=== PATIENT | female | born 1965 | race Caucasian/White ===

== ENCOUNTER 2017-02-11 05:45 | Emergency (ER) | payer SELFPAY ==
[2017-02-11 06:35] LABS: #Basophils 0.1 thou/uL (0.0-0.2); #Lymphocytes 4.5 thou/uL (1.20-3.40); #Monocytes 1.2 thou/uL (0.11-0.59); #Neutrophils 6.7 thou/uL (1.40-6.50); %Eosinophils 0.3 % (0.0-10.0); %Lymphocytes 35.6 % (21.0-51.0); %Monocytes 9.8 % (0.0-10.0); Hematocrit 40.6 % (36.0-47.0); Red Blood Cell (RBC) Count 4.39 mill/uL (4.20-5.40); White Blood Cell (WBC) Count 12.6 thou/uL (4.8-10.8)
[2017-02-11 06:56] LABS: ALT (SGPT) 13 U/L (8-55); AST (SGOT) 16 U/L (5-34); Alkaline Phosphatase 199 U/L (40-150); Anion Gap 13 mmol/L (10-20); BUN (Urea Nitrogen) 13 mg/dL (9.8-20.1); Bilirubin, Total 0.6 mg/dL (0.2-1.2); Calc. Creatinine Clearance 0 mL/min (70-130); Carbon Dioxide 22 mmol/L (22-29); Chloride 108 mmol/L (98-107); Estimated GFR-MDRD 74; Globulin 3.2 g/dL (2.4-3.5); Protein, Total 6.8 g/dL (6.0-8.3)
[2017-02-11 07:46] LABS: Bilirubin Negative (Negative); Blood, Urine Moderate (Negative); Glucose, Urine (Dipstick) Negative (Negative); Ketone, Urine Negative (Negative); Nitrite Negative (Negative); Protein, Urine (Dipstick) 100 mg/dL (Neg-Trace)
[2017-02-11 07:52] LABS: Bacteria/HPF 3+ HPF (None Seen); Hyaline Casts/LPF 0-3 HYALINE CAST LPF (0-3 Hyaline); RBC/HPF 21-50 HPF (0-3); Squamous Epithelial 0-3 HPF (0-3)
[2017-02-11] MEDS ORDERED: cefTRIAXone\\ROCEPHIN 1 GM VIAL IM SCH (08:30)
[2017-02-11] MEDS ORDERED: Lidocaine 1% PF 5 ML VIAL ONE (09:26)
== END 2017-02-11 10:01 | disposition home or self-care (01) ==
LOC: ERS 05:45
DX: N39.0 Urinary tract infection, site not specified (principal); G43.909 Migraine, unspecified, not intractable, without status migrainosus; F17.210 Nicotine dependence, cigarettes, uncomplicated; Z79.899 Other long term (current) drug therapy
CPT/HCPCS: 36415; 80053; 81003; 81015; 85025; 87077; 87086; 87186; 96372; 99406; J0696; J2001

== ENCOUNTER 2017-05-03 10:19 | Emergency (ER) | payer SELFPAY ==
--- NOTE | 2017-05-03 11:13 | RAD ---
RIGHT FOOT 3 VIEWS: Date: 05/03/17 HISTORY: Injury, fall, right foot pain. FINDINGS/IMPRESSION: No acute fracture or dislocation is seen. Posterior and plantar calcaneal spurs are present. POS: [facility]
== END 2017-05-03 11:45 | disposition home or self-care (01) ==
LOC: ERS 10:19
DX: S93.401A Sprain of unspecified ligament of right ankle, initial encounter (principal); G43.909 Migraine, unspecified, not intractable, without status migrainosus; I10 Essential (primary) hypertension; N90.810 Female genital mutilation status, unspecified; F17.210 Nicotine dependence, cigarettes, uncomplicated; W10.9XXA Fall (on) (from) unspecified stairs and steps, initial encounter

== ENCOUNTER 2019-01-04 10:44 | Outpatient (CLI) | payer OTHER ==
--- NOTE | 2019-01-04 11:33 | RAD ---
Cervical spine 4 views: 12/27/2018 COMPARISON: None HISTORY: Neck pain, history of leukemia FINDINGS: There is minimal anterolisthesis at C2-3 and C3-4, measuring in the 3 mm range at each leve l. C5-6 level demonstrates mild anterior osteophyte formation. Within the mid cervical spine there is bilateral facet and uncovertebral osteophyte formation, left g reater than right, most prominent at C3-4, C4-5, and C5-6. Open-mouth odontoid view demonstrates a normal appearance. There is questionable soft tissue nodularity in the supraclavicular region bilaterally on frontal dariana ging, which could signify lymphadenopathy. Recommend correlation with clinical/physical examination. CT would be the study of choice for further assessment. IMPRESSION: Degenerative change as detailed above. Question soft tissue nodularity in the supraclavic ular regions which may reflect lymphadenopathy. CODE T
== END 2019-01-04 10:45 | disposition home or self-care (01) ==
LOC: BICRAD 10:44
PROVIDERS: ATTEND Internal Medicine
DX: M54.2 Cervicalgia (principal); M47.812 Spondylosis without myelopathy or radiculopathy, cervical region; Z72.0 Tobacco use
CPT/HCPCS: 72040

== ENCOUNTER 2019-05-05 12:50 | Inpatient (IN) | payer OTHER, SELFPAY ==
[2019-05-05 13:27] LABS: Hemoglobin 11.8 g/dL (12.0-16.0); Mean Corpuscular HGB CONC 28.3 g/dL (32.0-36.0); Mean Corpuscular Hemoglobin 26.8 pg (27.0-31.0); Mean Corpuscular Volume 94.9 fL (78.0-98.0); Mean Platelet Volume 8.3 fL (7.4-10.4); Platelet Count 173 thou/uL (130-400); RBC Distribution Width 13.2 % (11.5-14.5); Red Blood Cell (RBC) Count 4.42 mill/uL (4.20-5.40)
[2019-05-05 13:33] LABS: Bilirubin Negative (Negative); Blood, Urine Trace (Negative); Clarity Clear (Clear); Glucose, Urine (Dipstick) Normal (Negative); Leukocyte Negative Leu/uL (Negative); Nitrite Negative (Negative); Protein, Urine (Dipstick) 10 mg/dL (Neg-Trace); RBC/HPF 0-3 HPF (0-3); Squamous Epithelial 0-3 HPF (0-3); Urobilinogen Normal mg/dL (Less than 2); WBC/HPF None Seen HPF (0-3)
[2019-05-05 13:42] LABS: Bacteria/HPF None Seen HPF (None Seen)
[2019-05-05 13:44] LABS: Lymphocytes 91 % (21-51); MDiff Complete? YES; Monocytes 2 % (0-10); Neutrophil 6 % (42-75); Platelet Morphology Comment Appears Adequate; Reactive Lymphocytes 1 % (0-10); Tear Drops SLIGHT = 2-5 cells (100X) (0-1/hpf)
[2019-05-05 13:45] LABS: ALT (SGPT) 8 U/L (8-55); AST (SGOT) 26 U/L (5-34); Albumin 4.5 g/dL (3.5-5.0); Alkaline Phosphatase 198 U/L (40-110); Anion Gap 13 mmol/L (10-20); BUN (Urea Nitrogen) 17 mg/dL (9.8-20.1); Bilirubin, Total 0.4 mg/dL (0.2-1.2); Calc. Creatinine Clearance 0 mL/min (70-130); Calcium 9.5 mg/dL (7.8-10.44); Carbon Dioxide 24 mmol/L (22-29); Chloride 107 mmol/L (98-107); Estimated GFR-MDRD 47; Globulin 3.3 g/dL (2.4-3.5); Glucose 81 mg/dL (70-105); Protein, Total 7.8 g/dL (6.0-8.3); Sodium 137 mmol/L (136-145)
[2019-05-05 13:50] LABS: Potassium 6.8 mmol/L (3.5-5.1)
[2019-05-05] MEDS ORDERED: Morphine 4 MG/ML VIAL ONE ×2 (14:14→16:49)
[2019-05-05 14:25] LABS: CKMB 1.1 ng/mL (0-6.6)
--- NOTE | 2019-05-05 14:59 | RAD ---
PORTABLE CHEST: Date: 05/05/2019 HISTORY: Left-sided chest pain. FINDINGS: Heart size within normal limits. Mediastinal structures appear unremarkable. Lungs are clear of any i nfiltrates. No signs of failure. IMPRESSION: No active intrathoracic disease. POS: [facility]
--- NOTE | 2019-05-05 15:11 | CT ---
CT ABDOMEN AND PELVIS PERFORMED WITH CONTRAST ENHANCEMENT: HISTORY: Left-sided abdomen pain. The patient also has a history of CLL. COMPARISON: None. FINDINGS: Lung bases are clear of any infiltrative process. There is evidence for air trapping. The liver shows no focal abnormalities. There is marked splenomegaly, the spleen measuring 22 cm in length. Pancreas and gallbladder regions are unremarkable. Right and left adrenal glands and right and left kidneys are normal in size. There is some mild dila tation to both collecting systems with a 5-6 mm calcification which appears to be within the proximal right ureter. There is extensive confluent periaortic adenopathy which begins at the level of the s uperior mesenteric artery and extends to the bifurcation. This measures as much as 4.8 x 7.9 cm in s ize. This confluent lymphadenopathy extends as soft tissue changes in the presacral region extending all the way to the level of the coccyx with extensive iliac chain and obturator chain adenopathy. T here are perirectal soft tissue changes. There is a fat plane between these soft tissue changes in t he rectum itself. The appendix is normal. Review of osseous structured showed no lytic or blastic bony change. IMPRESSION: 1. Extensive abdominal adenopathy. This includes gastrohepatic and peripancreatic and periportal ly mphadenopathy with more extensive adenopathy surrounding the aorta and IVC with confluent soft tissue changes extending along the anterior border of the sacrum and coccyx and soft tissue changes surroun ding the rectosigmoid colon region, also extensive iliac and obturator chain adenopathy. This in con junction with splenomegaly is compatible with a history of chronic lymphocytic leukemia. I have no p revious exams for comparison. 2. Bilateral hydronephrosis. On the right side, this appears to be caused by calcification which is felt to be within the right ureter. It measures 5-6 mm in size located at approximately the L5 leve l. POS: [facility]
--- NOTE | 2019-05-05 16:27 | PDOC.FPRHP ---
- History of Present Illness Chief Complaint: Abdominal pain History of Present Illness: 53 yo F w/ PMH of CLL monitored By Dr Olivares, HTN, HLD, anxietyand tobacco abuse who presents for acute onset LUQ abdominal pain. Pt reports she has had some intermittent pain over last week but acutely worsenied today and she presented to the ED. She reports some left shoulder pain that has been present for weeks. Denies fever chiils, NVDC, no sob, no pluerisy. Denies CP. In ED pt noted to have elevated troponin at .4 and trai as well as hyperkalemia. She was agressively fluid resuscitated and given th lovenox and d50 plus insulin for potassium 6.8. ED Course: See Above - Allergies/Adverse Reactions Allergies Allergy/AdvReac Type Severity Reaction Status Date / Time No Known Allergies Allergy Verified 05/05/19 20:13 - Home Medications Medication Instructions Recorded Confirmed Type Amlodipine [Norvasc] 5 mg PO HS 05/05/19 05/05/19 History Atorvastatin Calcium 20 mg PO HS 05/05/19 05/05/19 History Celecoxib [Celebrex] 200 mg PO HS 05/05/19 05/05/19 History FLUoxetine HCl 20 mg PO DAILY 05/05/19 05/05/19 History - History PMHx:CLL see hpi PSHx: Right wrist, tubal ligation FHx:Denies Social: 1ppd smoker 30+ pack years, denies alcohol and drug use - Review of Systems General: denies: fever/chills, night sweats, fatigue ENT: denies: nasal congestion Respiratory: denies: cough, congestion, shortness of breath Cardiovascular: denies: chest pain, edema Gastrointestinal: reports: abdominal pain. denies: nausea, vomiting, GI bleeding Genitourinary: denies: dysuria Skin: denies: rashes Musculoskeletal: reports: pain Neurological: reports: syncope Psychological: reports: anxiety - Vital signs BP: 156/77 HR: 84 RR: 20 Tmax: 98.5 Pox: 100% on ra Wt: 69Kg - Physical Exam Constitutional: awake, alert and oriented, other (In acute pain) HEENT: normocephalic and atraumatic, PERRLA, grossly normal vision, grossly normal hearing Neck: supple -Neck: diffuse adenopathy Chest: no-tender to palpation Heart: RRR, normal S1/S2, no murmurs/rubs/gallops, no edema Lungs: no respiratory distress, good air movement -Lungs: scattered rhonchi Abdomen: soft -Abdomen: splene paplable below costal margin, moderately ttp LUQ Neurological: no focal deficit, normal sensation Skin: no rash/lesions, capillary refill <2 seconds, no jaundice Heme/Lymphatic: no unusual bruising or bleeding -Heme/Lymphatic: Diffuse adenopathy Psychiatric: normal mood and affect FMR H&P: Results - Labs Result Diagrams: 05/06/19 04:11 05/06/19 14:19 Lab results: WBC 290.0 thou/uL (4.8-10.8) H* 05/05/19 13:11 Hgb 11.8 g/dL (12.0-16.0) L 05/05/19 13:11 Hct 41.9 % (36.0-47.0) 05/05/19 13:11 MCV 94.9 fL (78.0-98.0) 05/05/19 13:11 Plt Count 173 thou/uL (130-400) 05/05/19 13:11 Sodium 137 mmol/L (136-145) 05/05/19 13:11 Potassium 6.8 mmol/L (3.5-5.1) H* 05/05/19 13:11 Chloride 107 mmol/L (98-107) 05/05/19 13:11 Carbon Dioxide 24 mmol/L (22-29) 05/05/19 13:11 BUN 17 mg/dL (9.8-20.1) 05/05/19 13:11 Creatinine 1.20 mg/dL (0.6-1.1) H 05/05/19 13:11 Glucose 81 mg/dL (70-105) 05/05/19 13:11 Calcium 9.5 mg/dL (7.8-10.44) 05/05/19 13:11 Total Bilirubin 0.4 mg/dL (0.2-1.2) 05/05/19 13:11 AST 26 U/L (5-34) 05/05/19 13:11 ALT 8 U/L (8-55) 05/05/19 13:11 Alkaline Phosphatase 198 U/L (40-110) H 05/05/19 13:11 CK-MB (CK-2) 1.1 ng/mL (0-6.6) 05/05/19 13:11 Serum Total Protein 7.8 g/dL (6.0-8.3) 05/05/19 13:11 Albumin 4.5 g/dL (3.5-5.0) 05/05/19 13:11 Urine Ketones Negative mg/dL (Negative) 05/05/19 13:07 Urine Blood Trace (Negative) A 05/05/19 13:07 Urine Nitrite Negative (Negative) 05/05/19 13:07 Ur Leukocyte Esterase Negative Jigar/uL (Negative) 05/05/19 13:07 Urine RBC 0-3 HPF (0-3) 05/05/19 13:07 Urine WBC None Seen HPF (0-3) 05/05/19 13:07 Ur Squamous Epith Cells 0-3 HPF (0-3) 05/05/19 13:07 Urine Bacteria None Seen HPF (None Seen) 05/05/19 13:07 - EKG Interpretation EKG: NSR no st or t wave changes, rate WNL - Radiology Interpretation CT scan - abdomen Status: report reviewed by me (Diffuse adenopathy, no splenic infarct, 22cm splene) FMR H&P: A/P - Problem List (1) CLL (chronic lymphocytic leukemia) Current Visit: Yes Status: Chronic Code(s): C91.10 - CHRONIC LYMPHOCYTIC LEUK OF B-CELL TYPE NOT ACHIEVE REMIS (2) Abdominal pain Current Visit: Yes Status: Acute Code(s): R10.9 - UNSPECIFIED ABDOMINAL PAIN (3) Splenomegaly Current Visit: Yes Status: Acute Code(s): R16.1 - SPLENOMEGALY, NOT ELSEWHERE CLASSIFIED (4) NSTEMI (non-ST elevated myocardial infarction) Current Visit: Yes Status: Acute Code(s): I21.4 - NON-ST ELEVATION (NSTEMI) MYOCARDIAL INFARCTION (5) Hyperkalemia Current Visit: Yes Status: Acute Code(s): E87.5 - HYPERKALEMIA (6) HTN (hypertension) Current Visit: Yes Status: Chronic Code(s): I10 - ESSENTIAL (PRIMARY) HYPERTENSION (7) Anxiety Current Visit: Yes Status: Acute Code(s): F41.9 - ANXIETY DISORDER, UNSPECIFIED (8) Normocytic anemia Current Visit: Yes Status: Chronic Code(s): D64.9 - ANEMIA, UNSPECIFIED (9) TARI (acute kidney injury) Current Visit: Yes Status: Acute Code(s): N17.9 - ACUTE KIDNEY FAILURE, UNSPECIFIED - Plan 53 yo F w/ CLL and marked splenomegaly presents for LUQ abdominal pain 1) CLL with abd pain - likely related to enlarged spleen - norco prn for pain - trend daily cbc - no abx at this time - TLS labs neg - Dr Olivares consulted in ED - allopurinl 200mg bid and trend TLS labs 2) Abd pain: see above 3) Type 2 NSTEMI: - no cp - th lovenix -trend - COnsider am cards consult 4) HTN) - cont home meds 5) HLD: - cont home meds 6) TARI: - IVF hydration, trend 7) Hyperkalemia - s/p d50 and insulin, repeat pending - kayexalayte and repeat am CMP Dispo: Guarded, monitor on telemetry and trend labs. Onc consulted, appreciate recs. Code: Full FMR H&P: Upper Level - Plan Date/Time: 05/05/19 1626 I, [], have evaluated this patient and agree with findings/plan as outlined by business intern resident. Pertinent changes/additions are listed here. Addendum - Attending - Attending Attestation Date/Time: 05/05/19 3039 I personally evaluated the patient and discussed the management with Dr. Carter I agree with the History, Examination, Assessment and Plan documented above with any addition or exceptions noted below. 53 yo female with hx of CLL presents for abdominal pain. CT scan reviewed. Patient noted to have bilateral hydro with right-sided nephrolithasis. Does not appear to be infected. Will continue IVFs and UOP. Baeza if not responding appropriately. Strain urine. Repeat US in AM to monitor hydro. Also noted to have significant adenopathy and spleenomegaley. Labs reviewed and patient with TARI and hyperkalemia in association with elevated troponin > 0.3. Possibly related to TARI, however meets criteria for NSTEMI, type II. Will place on tele. Start therapuetic anticoagulation. ECHO in AM. Trend trop and EKGs. Patient remains asymptomatic. Start kayex for hyperK. Cards and Onc consulted. Arianne
[2019-05-05 16:41] LABS: Troponin I 0.224 ng/mL (< 0.028)
[2019-05-05] MEDS ORDERED: Insulin Regular 300 UNITS/3 ML VIAL ONE ×2 (17:25→17:58)
[2019-05-05] MEDS ORDERED: Ondansetron ODT 4 MG TAB PO PRN (17:29)
[2019-05-05] MEDS ORDERED: Ondansetron PF 4 MG/2 ML Vial IVP PRN (17:29)
[2019-05-05] MEDS ORDERED: HYDROcodone/Acetaminophen 5/325 mg Tablet PO PRN (17:29)
[2019-05-05] MEDS ORDERED: Albuterol Sulfate 2.5 mg/3 ml Neb NEB PRN (17:34)
[2019-05-05] MEDS ORDERED: Enoxaparin Sodium 80 MG/0.8 ML SYRINGE ONE ×2 (17:54→17:58)
[2019-05-05] MEDS ORDERED: Dextrose 50% Abboject 50 ML SYRINGE ONE (17:58)
[2019-05-05 19:50] LABS: Troponin I Less than 0.010 ng/mL (< 0.028)
[2019-05-05 19:54] LABS: Anion Gap 13 mmol/L (10-20); BUN (Urea Nitrogen) 15 mg/dL (9.8-20.1); Calc. Creatinine Clearance 0 mL/min (70-130); Calcium 9.1 mg/dL (7.8-10.44); Carbon Dioxide 24 mmol/L (22-29); Chloride 107 mmol/L (98-107); Estimated GFR-MDRD 50; Sodium 140 mmol/L (136-145)
[2019-05-05 19:59] LABS: Glucose 57 mg/dL (70-105)
[2019-05-05 20:09] VITALS: BMI 22.5
[2019-05-05] MEDS: Allopurinol 100 MG TAB PO SCH (20:39)
[2019-05-05] MEDS: Famotidine 20 MG TAB PO SCH (20:42)
[2019-05-05] MEDS: HYDROcodone/Acetaminophen 5/325 mg Tablet PO PRN (20:44)
[2019-05-05] MEDS: Lactated Ringer's 1,000 ML IV SCH (20:47)
[2019-05-05] MEDS ORDERED: Amlodipine 5 MG TAB PO SCH (23:00)
[2019-05-06] MEDS: Lactated Ringer's 1,000 ML IV SCH ×3 (03:46→20:32)
[2019-05-06 05:02] LABS: Phosphorus 3.8 mg/dL (2.3-4.7)
[2019-05-06 05:08] LABS: ALT (SGPT) 7 U/L (8-55); AST (SGOT) 22 U/L (5-34); Albumin 3.9 g/dL (3.5-5.0); Alkaline Phosphatase 174 U/L (40-110); Anion Gap 14 mmol/L (10-20); BUN (Urea Nitrogen) 14 mg/dL (9.8-20.1); Bilirubin, Total 0.5 mg/dL (0.2-1.2); Calc. Creatinine Clearance 68 mL/min (70-130); Calcium 8.8 mg/dL (7.8-10.44); Carbon Dioxide 23 mmol/L (22-29); Chloride 107 mmol/L (98-107); Estimated GFR-MDRD 56; Globulin 3.1 g/dL (2.4-3.5); Glucose 85 mg/dL (70-105); Potassium 5.6 mmol/L (3.5-5.1); Sodium 138 mmol/L (136-145); Uric Acid 4.7 mg/dL (2.6-6.0)
[2019-05-06 05:27] LABS: Hemoglobin 11.6 g/dL (12.0-16.0); Lymphocytes 96 % (21-51); MDiff Complete? YES; Mean Corpuscular HGB CONC 30.5 g/dL (32.0-36.0); Mean Corpuscular Hemoglobin 29.1 pg (27.0-31.0); Mean Corpuscular Volume 95.6 fL (78.0-98.0); Mean Platelet Volume 8.4 fL (7.4-10.4); Monocytes 1 % (0-10); Neutrophil 1 % (42-75); Platelet Count 138 thou/uL (130-400); Platelet Morphology Comment Appears Adequate; RBC Distribution Width 13.2 % (11.5-14.5); Reactive Lymphocytes 2 % (0-10); Red Blood Cell (RBC) Count 3.96 mill/uL (4.20-5.40)
--- NOTE | 2019-05-06 06:07 | PDOC.FM ---
- Subjective Subjective: Patient doing well this morning. She reports that her LUQ pain has improved greatly since yesterday. Denies any complaints this morning. Discussed that we will be consulting cardiology today, patient agreeable with plan of care. - Objective Vital Signs & Weight: Vital Signs (12 hours) Temp Pulse Resp BP BP BP Pulse Ox 05/06/19 03:50 98.0 F 84 16 137/72 97 05/06/19 00:03 77 151/69 H 05/06/19 00:00 77 14 151/69 H 98 05/05/19 19:55 98.5 F 84 20 156/77 H 100 Weight Weight 69.173 kg I&O: 05/04/19 05/05/19 05/06/19 06:59 06:59 06:59 Intake Total 1916 Output Total 200 Balance 1716 Result Diagrams: 05/06/19 04:11 05/06/19 04:11 EKG Reviewed by me: Yes (sinus 70s) Phys Exam - Physical Examination Constitutional: NAD HEENT: moist MMs, sclera anicteric Neck: supple, full ROM Respiratory: no wheezing, clear to auscultation bilateral Cardiovascular: RRR, no significant murmur Gastrointestinal: positive bowel sounds slightly ttp LUQ Musculoskeletal: no edema, pulses present Neurological: non-focal, moves all 4 limbs Psychiatric: normal affect, A&O x 3 Skin: no rash, normal turgor Dx/Plan (1) TARI (acute kidney injury) Code(s): N17.9 - ACUTE KIDNEY FAILURE, UNSPECIFIED Status: Acute (2) Abdominal pain Code(s): R10.9 - UNSPECIFIED ABDOMINAL PAIN Status: Acute (3) CLL (chronic lymphocytic leukemia) Code(s): C91.10 - CHRONIC LYMPHOCYTIC LEUK OF B-CELL TYPE NOT ACHIEVE REMIS Status: Chronic (4) HTN (hypertension) Code(s): I10 - ESSENTIAL (PRIMARY) HYPERTENSION Status: Chronic (5) Hyperkalemia Code(s): E87.5 - HYPERKALEMIA Status: Acute (6) NSTEMI (non-ST elevated myocardial infarction) Code(s): I21.4 - NON-ST ELEVATION (NSTEMI) MYOCARDIAL INFARCTION Status: Acute (7) Normocytic anemia Code(s): D64.9 - ANEMIA, UNSPECIFIED Status: Chronic - Plan Plan: Patient is a 53F with PMHx of CLL (Dr Olivares), HTN, HLD, anxiety, and tobacco abuse admitted for: #CLL with LUQ abd pain - splenomegaly, likely related - Abd CT: abdominal adenopathy, splenomegaly, bilateral hydronephrosis -hgb and platelets stable at this time with splenomegaly - continue norco prn for pain - continue to trend daily cbc - no abx at this time - TLS labs neg - Dr Olivares consulted in ED, appreciate recs - allopurinol 200mg bid and trend TLS labs #Type 2 NSTEMI: - no cp - th lovenix started in ED, continue - trops: 0.465>0.224> <0.01 - cards consult today, appreciate recs #HTN - cont home meds #HLD: - cont home meds #TARI: -creatinine improved slightly to 1.02 from 1.13, GFR improved slightly; neither at baseline -Abd CT: bilateral hydronephrosis; R ureter calcification noted - IVF hydration, trend #Hyperkalemia - s/p d50 and insulin - 6.8>4.0>5.4 - albuterol q2h scheduled and kayexalate DVTppx: th lovenox Diet: HH Dispo: Onc consulted, appreciate recs. Cards consult today for NSTEMI, appreciate recs. Continue pain control Code: Full Addendum - Attending - Attending Attestation Date/Time: 05/06/19 2955 I personally evaluated the patient and discussed the management with Dr. Church I agree with the History, Examination, Assessment and Plan documented above with any addition or exceptions noted below. Patient currently pain free. Hyperkalemia hold COX2 inhibitor etiology not confirmed tumor lysis syndrome not yet substantiated. Patient to have Cardiology evaluation for NSTEMI. Patient Oncologist on case and appreciate recommendation. Will continue trend RFT and Potassium and treat consult accordingly.
[2019-05-06] MEDS ORDERED: Albuterol Sulfate 2.5 mg/3 ml Neb NEB SCH (08:00)
[2019-05-06] MEDS: Albuterol Sulfate 2.5 mg/3 ml Neb NEB SCH ×5 (08:15→15:29)
[2019-05-06] MEDS: Enoxaparin Sodium 80 MG/0.8 ML SYRINGE SC SCH ×2 (08:28→20:31)
[2019-05-06] MEDS: Allopurinol 100 MG TAB PO SCH ×2 (08:28→20:30)
[2019-05-06] MEDS: FLUoxetine HCl 20 MG CAP PO SCH (08:28)
[2019-05-06] MEDS: Famotidine 20 MG TAB PO SCH ×2 (08:28→20:31)
[2019-05-06] MEDS ORDERED: Furosemide 20 MG/2 ML VIAL SLOW IVP SCH (10:15)
[2019-05-06] MEDS ORDERED: Sodium Bicarb 50 MEQ/50 ML Abboject 8.4% SYRINGE IVP SCH (10:15)
[2019-05-06 14:48] LABS: Anion Gap 14 mmol/L (10-20); BUN (Urea Nitrogen) 13 mg/dL (9.8-20.1); Calc. Creatinine Clearance 67 mL/min (70-130); Calcium 9.3 mg/dL (7.8-10.44); Carbon Dioxide 29 mmol/L (22-29); Chloride 102 mmol/L (98-107); Estimated GFR-MDRD 55; Glucose 101 mg/dL (70-105); Sodium 141 mmol/L (136-145)
[2019-05-06] MEDS: HYDROcodone/Acetaminophen 5/325 mg Tablet PO PRN ×2 (15:51→20:28)
--- NOTE | 2019-05-06 17:13 | CON ---
DATE OF CONSULTATION: 05/06/2019 REASON FOR CONSULTATION: Positive troponin. HISTORY OF PRESENT ILLNESS: Ms. Maldonado is a pleasant 53-year-old white female, who comes to the hospital for abdominal pain. She was diagnosed with CLL about a year ago. She has been followed by Dr. Olivares. She had elected to not start any type of therapy for it. She came in as she has been having intermittent abdominal pain over the last week, worse on the left upper quadrant, some shoulder pain as well. Denies shortness of breath, nausea, or vomiting. No chest pain. During her admission, troponins were checked, and her initial value was actually elevated at 0.4 and has been downtrending ever since to the point where it was undetectable now at 0.4, 0.2, and then 0.01. On my evaluation, she denies any chest pain. She only admits to her abdominal pain. PAST MEDICAL HISTORY: 1. CLL. 2. Hypertension. 3. Hyperlipidemia. 4. Anxiety. SURGICAL HISTORY: 1. Right wrist surgery. 2. Tubal ligation. OUTPATIENT MEDICATIONS: 1. Amlodipine 5 mg q.h.s. 2. Atorvastatin 20 mg q.h.s. 3. Celebrex 200 mg q.h.s. 4. a day. ALLERGIES: NO KNOWN DRUG ALLERGIES. FAMILY HISTORY: No early coronary artery disease. SOCIAL HISTORY: A pack a day for the last 30 years. She states she is now just smoking about 8 cigarettes a day. No alcohol or drugs. REVIEW OF SYSTEMS: A 12-point review of systems was done and was all negative unless stated in the history of present illness. PHYSICAL EXAMINATION: VITAL SIGNS: Temperature 98.4, pulse 73, respiratory rate 16, saturating 99% on room air, and blood pressure 150/75. GENERAL: Awake, alert, and oriented x3, in no distress. HEENT: Normocephalic and atraumatic. NECK: Supple. LUNGS: Clear. CARDIOVASCULAR: S1 and S2. No S3 or S4. No murmurs. ABDOMEN: Soft, positive bowel sounds. EXTREMITIES: Trace edema. SKIN: Warm and dry. LABORATORY DATA: Laboratory work was reviewed. White count is impressive at on admission with 95% lymphocytes, hemoglobin 11.8, hematocrit 41, and platelet count of 173. Chemistry was unremarkable except for creatinine of 1.13, which is now better at 1.04. Potassium was 5.6 down to 4.0, glucose was 67, better now. Alkaline phosphatase was 174 and LDH was 256. Albumin of 3.9, and troponin went from 0.46, then to 0.22, and then undetectable less than 0.01. Albumin of 4.5. UA was unremarkable. CT of the abdomen and pelvis showed enlarged spleen measuring 22 cm. Extensive abdominal adenopathy and bilateral hydronephrosis. Chest x-ray shows no acute intrathoracic disease. ASSESSMENT AND PLAN: 1. Elevated troponin, likely type 2 demand type of ischemia. 2. Chronic lymphocytic leukemia. 3. Abdominal pain. 4. Splenomegaly. 5. Abdominal adenopathy. PLAN: 1. No indication for anticoagulation at this time. 2. The source of her pain is likely her splenomegaly and lymphadenopathy from her CLL. 3. We will get an echocardiogram to evaluate LV function and valvular structures. If this is okay, no further cardiac workup would be warranted at this time. 4. Thank you for letting us participate in the care of your patient. We will follow. Job ID: [id number]
--- NOTE | 2019-05-06 17:33 | CON ---
DATE OF CONSULTATION: REASON FOR CONSULTATION: CLL. HISTORY OF PRESENT ILLNESS: Ms. Maldonado is a pleasant 53-year-old female who was diagnosed with stage I CLL in 05/2018. She has been followed over the past year by Dr. Olivares. Her white count at presentation was 47,000. Over the past several months, she has rapidly progressed. When she was seen last on 04/12, her white count was 236,000. The plan was to begin chemotherapy once financial approval was obtained. Yesterday, she began to have left-sided abdominal pain. She presented to the emergency room for evaluation. She underwent a CT scan of her abdomen and pelvis, which showed marked splenomegaly, measuring 22 cm in length. She had extensive abdominal adenopathy, consistent with her CLL. She also complained of left shoulder pain, but no chest pain. Her troponin was mildly elevated at 0.4. She had hyperkalemia. She was admitted for further treatment. Aggressively hydrated and given D50 plus insulin. Her potassium has improved overnight and is currently normal. She is awaiting cardiac workup for her mildly elevated troponin. We were asked to see her regarding her CLL. The patient has had drenching night sweats for several months generally every night and has felt well until just recently. PAST MEDICAL HISTORY: 1. CLL. 2. Hypertension. 3. Hyperlipidemia. 4. Arthritis. 5. Hepatitis C. 6. Hemorrhoids. 7. History of substance abuse. 8. Tobacco use. PAST SURGICAL HISTORY: 1. Right hand surgery. 2. D and C for miscarriage. 3. Endometriosis. 4. Tubal ligation. 5. Hysterectomy. ALLERGIES: NO KNOWN DRUG ALLERGIES. HOME MEDICATIONS: 1. Amlodipine 10 mg. 2. Atorvastatin 20 mg. 3. Celebrex. 4. Prozac. FAMILY HISTORY: No family history of cancer or blood disorder. SOCIAL HISTORY: She is single, has 3 children. Lives with her daughter, son-in-law, 2 grandchildren, and a friend. A [id number] history of smoking, former illicit drug use. REVIEW OF SYSTEMS: A 10-point review of systems is negative except for noted in HPI. PHYSICAL EXAMINATION: VITAL SIGNS: Temperature 98.4, pulse is 73, respiratory rate 18, BP is 150/75, and she is 99% on room air. GENERAL: This is a well-developed, well-nourished female, in no acute distress. HEENT: Normocephalic and atraumatic. Pupils are equal and reactive to light. NECK: Supple. She does have palpable left and right posterior cervical lymph nodes. She has bilateral occipital lymphadenopathy, right posterior auricular and right posterior ischial soft nodules. CV: Regular rate and rhythm. LUNGS: Clear. ABDOMEN: Soft and nontender. She has a palpable spleen. EXTREMITIES: No clubbing or cyanosis. SKIN: No rash. LYMPHATICS: She has palpable bilateral axillary and inguinal lymphadenopathy. HEMATOLOGIC: No petechiae or purpura. NEUROLOGIC: Nonfocal. PERTINENT LABORATORY DATA AND X-RAYS: Current WBCs are 234,000, hemoglobin is 11.6, hematocrit 37.9, and platelet count is 138,000. She has 1 neutrophil and 96% lymphocytes. Sodium is 141, potassium 4.0, chloride 102, CO2 is 29, BUN is 13, creatinine 1.04, uric acid 4.7, calcium 8.8, phosphorus 3.8, bilirubin 0.5, AST 22, ALT 7, and alkaline phosphatase is 174. LDH is 253. Serum total protein is 7, albumin 3.9, and globulin 3.1. Radiology per HPI. ASSESSMENT: Chronic lymphocytic leukemia with extensive lymphadenopathy and splenomegaly. DISCUSSION: The patient has been started on allopurinol in anticipation of chemotherapy. She will have her first dose of Rituxan as an inpatient within the next day or so and will be monitored closely for tumor lysis syndrome. She will then follow up in the clinic to begin chemotherapy with venetoclax and Gazyva. The patient will need to be transferred to the oncology floor once her cardiac workup is completed. This was discussed at length with the patient who wishes to proceed. Case has also been discussed and reviewed with Dr. Olivares. Thank you for the consult. We will follow her hospital course closely. Job ID: [id number]
[2019-05-06] MEDS: Atorvastatin Calcium 20 MG TAB PO SCH (20:31)
[2019-05-06] MEDS: Amlodipine 5 MG TAB PO SCH (20:31)
[2019-05-07] MEDS: HYDROcodone/Acetaminophen 5/325 mg Tablet PO PRN ×2 (04:14→08:36)
[2019-05-07] MEDS: Lactated Ringer's 1,000 ML IV SCH ×3 (04:18→19:53)
[2019-05-07 04:57] LABS: ALT (SGPT) Less than 7 U/L (8-55); AST (SGOT) 20 U/L (5-34); Albumin 3.8 g/dL (3.5-5.0); Alkaline Phosphatase 150 U/L (40-110); Anion Gap 12 mmol/L (10-20); BUN (Urea Nitrogen) 14 mg/dL (9.8-20.1); Bilirubin, Total 0.4 mg/dL (0.2-1.2); Calc. Creatinine Clearance 71 mL/min (70-130); Calcium 8.8 mg/dL (7.8-10.44); Carbon Dioxide 30 mmol/L (22-29); Chloride 102 mmol/L (98-107); Estimated GFR-MDRD 59; Globulin 2.7 g/dL (2.4-3.5); Glucose 83 mg/dL (70-105); Potassium 3.4 mmol/L (3.5-5.1); Protein, Total 6.5 g/dL (6.0-8.3); Sodium 141 mmol/L (136-145)
[2019-05-07 05:40] LABS: Hemoglobin 12.1 g/dL (12.0-16.0); Mean Corpuscular Hemoglobin 32.3 pg (27.0-31.0); Mean Corpuscular Volume 94.9 fL (78.0-98.0); Mean Platelet Volume 8.1 fL (7.4-10.4); Platelet Count 121 thou/uL (130-400); Red Blood Cell (RBC) Count 3.74 mill/uL (4.20-5.40)
[2019-05-07 05:44] LABS: Lymphocytes 94 % (21-51); MDiff Complete? YES; Monocytes 2 % (0-10); Neutrophil 4 % (42-75)
--- NOTE | 2019-05-07 06:09 | PDOC.FM ---
- Subjective Subjective: Patient doing well this morning. Reports of a headache, but her abdominal pain has improved. - Objective Vital Signs & Weight: Vital Signs (12 hours) Temp Pulse Resp BP BP BP Pulse Ox 05/07/19 04:12 98.3 F 69 16 154/76 H 96 05/06/19 20:48 98.6 F 80 16 144/82 H 97 05/06/19 20:31 80 144/82 H Weight Admit Weight 69.173 kg Weight 67.676 kg I&O: 05/05/19 05/06/19 05/07/19 06:59 06:59 06:59 Intake Total 1916 2250 Output Total 200 Balance 1716 2250 Result Diagrams: 05/07/19 04:03 05/07/19 04:03 EKG Reviewed by me: Yes (sinus 60s-70s) Phys Exam - Physical Examination Constitutional: NAD HEENT: moist MMs, sclera anicteric Neck: supple, full ROM Respiratory: no wheezing, clear to auscultation bilateral Cardiovascular: RRR, no significant murmur Gastrointestinal: soft ttp RUQ, splenic tip palpated Musculoskeletal: no edema, pulses present Neurological: non-focal, moves all 4 limbs lymphadenopathy throughout Psychiatric: normal affect, A&O x 3 Skin: no rash, normal turgor Dx/Plan (1) TARI (acute kidney injury) Code(s): N17.9 - ACUTE KIDNEY FAILURE, UNSPECIFIED Status: Acute (2) Abdominal pain Code(s): R10.9 - UNSPECIFIED ABDOMINAL PAIN Status: Acute (3) CLL (chronic lymphocytic leukemia) Code(s): C91.10 - CHRONIC LYMPHOCYTIC LEUK OF B-CELL TYPE NOT ACHIEVE REMIS Status: Chronic (4) HTN (hypertension) Code(s): I10 - ESSENTIAL (PRIMARY) HYPERTENSION Status: Chronic (5) Hyperkalemia Code(s): E87.5 - HYPERKALEMIA Status: Acute (6) NSTEMI (non-ST elevated myocardial infarction) Code(s): I21.4 - NON-ST ELEVATION (NSTEMI) MYOCARDIAL INFARCTION Status: Acute (7) Normocytic anemia Code(s): D64.9 - ANEMIA, UNSPECIFIED Status: Chronic - Plan Plan: Patient is a 53F with PMHx of CLL (Dr Olivares), HTN, HLD, anxiety, and tobacco abuse admitted for: #CLL with LUQ abd pain - splenomegaly, likely related - Abd CT: abdominal adenopathy, splenomegaly, bilateral hydronephrosis - continue norco prn for pain - continue to trend daily cbc - no abx at this time - TLS labs neg - Dr Olivares consulted in ED, appreciate recs -patient will get first dose of rituxan in hospital after cardiac workup complete, with monitoring for tumor lysis syndrome; she will then be able to continue the rest of her treatments outpatient - allopurinol 200mg bid and trend TLS labs #Type 2 NSTEMI: - no cp - th lovenix started in ED, cards rec no indication for anticoagulation at this time, will transition to daily lovenox - trops: 0.465>0.224> <0.01 - cards consult, rec echo to assess for left ventricular and valvular function, pending #HTN - cont home meds #HLD: - cont home meds #TARI: -creatinine 1.13>1.02>0.98, GFR improved -Abd CT: bilateral hydronephrosis; R ureter calcification noted - IVF hydration, trend #Hyperkalemia, resolved - 6.8>4.0>5.4 >3.4 DVTppx: lovenox Diet: Dispo: Onc consulted, appreciate recs. Cards consult, plan for echo today with likely move to oncology floor later today to begin treatment for CLL with active monitoring for tumor lysis syndrome. Continue pain control Code: Full Addendum - Attending - Attending Attestation Date/Time: 05/07/19 8131 I personally evaluated the patient and discussed the management with Dr. Church I agree with the History, Examination, Assessment and Plan documented above with any addition or exceptions noted below. Appreciate specialist recommendations echocardiogram completed results pending plan transfer to Oncology floor if stable to start treatment. Potassium corrected patient still with anorexia. No significant abdominal pain last BM several days ago she will benefits from regular BM will rx laxative prn.
[2019-05-07] MEDS ORDERED: Acetaminophen 650 MG/20.3 ML UDCUP PO PRN (08:16)
[2019-05-07] MEDS: FLUoxetine HCl 20 MG CAP PO SCH (08:24)
[2019-05-07] MEDS: Famotidine 20 MG TAB PO SCH ×2 (08:24→19:53)
[2019-05-07] MEDS: Allopurinol 100 MG TAB PO SCH ×2 (08:24→19:54)
[2019-05-07] MEDS: Enoxaparin Sodium 40 MG/0.4 ML SYRINGE SC SCH (08:26)
[2019-05-07] MEDS ORDERED: Senokot S 8.6-50 MG TAB PO SCH (11:20)
[2019-05-07] MEDS: Polyethylene Glycol 3350 17 GM Packet PO SCH (12:47)
[2019-05-07] MEDS ORDERED: Polyethylene Glycol 3350 17 GM Packet PO SCH (13:00)
--- NOTE | 2019-05-07 14:26 | PDOC.MOPN ---
Interval History: denies any pain. - Vital Signs Vital Signs: Vital Signs (12 hours) Temp Pulse Resp BP Pulse Ox 05/07/19 12:51 98.5 F 78 20 159/80 H 98 05/07/19 08:17 98.2 F 79 16 154/78 H 96 05/07/19 04:12 98.3 F 69 16 154/76 H 96 Weight Admit Weight 152 lb 8 oz Weight 149 lb 3.2 oz - Physical Exam General: Alert, Oriented x3, No acute distress HEENT: Atraumatic, PERRLA, EOMI, Mucous membr. moist/pink Lungs: Clear to auscultation, Normal air movement Abdomen: Other (splenomegaly) Extremities: No clubbing, No cyanosis, No edema, Normal pulses, No tenderness/ swelling Skin: No rashes, No breakdown, No significant lesion Neurological: Normal gait, Normal speech, Strength at 5/5 X4 ext, Normal tone, Sensation intact, Cranial nerves 3-12 NL, Reflexes 2+ Psych/Mental Status: Mental status NL, Mood NL - Labs Result Diagrams: 05/07/19 04:03 05/07/19 04:03 Lab results: Laboratory Results - last 24 hr 05/07/19 04:03: Sodium 141, Potassium 3.4 L, Chloride 102, Carbon Dioxide 30 H, Anion Gap 12, BUN 14, Creatinine 0.98, Estimated GFR (MDRD) 59, Glucose 83, Calcium 8.8, Total Bilirubin 0.4, AST 20, ALT Less than 7 L, Alkaline Phosphatase 150 H, Serum Total Protein 6.5, Albumin 3.8, Globulin 2.7, Albumin/ Globulin Ratio 1.4 05/07/19 04:03: WBC 193.0 H*, RBC 3.74 L, Hgb 12.1, Hct 35.5 L, MCV 94.9, MCH 32.3 H, MCHC 34.0, RDW 13.0, Plt Count 121 L, MPV 8.1, Neutrophils % (Manual) 4 L, Lymphocytes % (Manual) 94 H, Monocytes % (Manual) 2, Neutrophils # Not Reportable, Lymphocytes # Not Reportable 05/06/19 14:19: Sodium 141, Potassium 4.0, Chloride 102, Carbon Dioxide 29, Anion Gap 14, BUN 13, Creatinine 1.04, Estimated GFR (MDRD) 55, Glucose 101, Calcium 9.3 Status: lab reviewed by me A/P - Problem (1) CLL (chronic lymphocytic leukemia) Current Visit: Yes Code(s): C91.10 - CHRONIC LYMPHOCYTIC LEUK OF B-CELL TYPE NOT ACHIEVE REMIS Status: Chronic - Plan Plan: 1. Rituxan not available here until Friday or Friday. 2. If cleared by Cardiology and Residents she can go home and return to our clinic on Friday 3. Continue Allopurinol 200mg BID
--- NOTE | 2019-05-07 15:30 | PDOC.CPN ---
- Subjective Date: 05/07/19 Time: 15:28 Interval history: No new issues. No chest pain. - Review of Systems General: denies: fever/chills, weight/appetite/sleep changes, night sweats, fatigue Respiratory: denies: cough, congestion, shortness of breath, exercise intolerance Cardiovascular: denies: chest pain, palpitation, edema, paroxysmal nocturnal dyspnea, orthopnea Gastrointestinal: reports: abd pain Musculoskeletal: denies: tenderness, stiffness, swelling, arthritis/arthralgias Neurological: denies: numbness, syncope, seizure, weakness - Objective Allergies/Adverse Reactions: Allergies Allergy/AdvReac Type Severity Reaction Status Date / Time No Known Allergies Allergy Verified 05/05/19 20:13 Visit Medications: Current Medications Acetaminophen (Tylenol Elixir) 650 mg PO Q4H PRN PRN Reason: Headache, Aches or Pain Hydrocodone Bitart/Acetaminophen (Davis 5/325) 1 tab PO Q4H PRN PRN Reason: Moderate Pain (4-6) Hydrocodone Bitart/Acetaminophen (Davis 5/325) 2 tab PO Q4H PRN PRN Reason: Severe Pain (7-10) Last Admin: 05/07/19 08:36 Dose: 2 tab Albuterol/Ipratropium (Duoneb) 3 ml NEB Q4H PRN PRN Reason: SOB &/or Wheezing Allopurinol (Zyloprim) 200 mg PO BID [facility] Last Admin: 05/07/19 08:24 Dose: 200 mg Amlodipine Besylate (Norvasc) 5 mg PO HS [facility] Last Admin: 05/06/19 20:31 Dose: 5 mg Atorvastatin Calcium (Lipitor) 20 mg PO HS [facility] Last Admin: 05/06/19 20:31 Dose: 20 mg Enoxaparin Sodium (Lovenox) 40 mg SC 0900 [facility] Last Admin: 05/07/19 08:26 Dose: 40 mg Famotidine (Pepcid) 20 mg PO BID [facility] Last Admin: 05/07/19 08:24 Dose: 20 mg Fluoxetine HCl (Prozac) 20 mg PO DAILY [facility] Last Admin: 05/07/19 08:24 Dose: 20 mg Lactated Ringer's (Lactated Ringer's) 1,000 mls @ 125 mls/hr IV .Q8H [facility] Last Admin: 05/07/19 12:51 Dose: 1,000 mls Ondansetron HCl (Zofran Odt) 4 mg PO Q6H PRN PRN Reason: Nausea/Vomiting Ondansetron HCl (Zofran) 4 mg IVP Q6H PRN PRN Reason: Nausea/Vomiting Polyethylene Glycol (Miralax) 17 gm PO DAILY [facility] Last Admin: 05/07/19 12:47 Dose: Not Given Senna/Docusate Sodium (Senokot S) 1 tab PO BID [facility] Sodium Polystyrene Sulfonate (Kayexalate Oral Susp 15 Gm/60 Ml) 15 gm PO DAILY [facility] Last Admin: 05/07/19 08:23 Dose: Not Given Vital Signs & Weight: Vital Signs Temp Pulse Resp BP Pulse Ox 05/07/19 12:51 98.5 F 78 20 159/80 H 98 05/07/19 08:17 98.2 F 79 16 154/78 H 96 05/07/19 04:12 98.3 F 69 16 154/76 H 96 Admit Weight 152 lb 8 oz Weight 149 lb 3.2 oz - Physical Exam General: alert & oriented x3 HEENT: mucus membranes moist Neck: supple neck Cardiac: regular rate and rhythm Lungs: clear to auscultation Neuro: grossly intact Abdomen: tender Extremities: 1+ LE edema Skin: clear Musculoskeletal: normal range of motion - Labs Result Diagrams: 05/07/19 04:03 05/07/19 04:03 Troponin/CKMB CK-MB (CK-2) 1.1 ng/mL (0-6.6) 05/05/19 13:11 Troponin I Less than 0.010 ng/mL (< 0.028) 05/05/19 19:24 - Telemetry Sinus rhythms and dysrhythmias: sinus rhythm - Assessment/Plan Assessment/Plan: 1. CLL 2. Abdominal pain likely from CLL 3. Splenomegaly 4. Ascitis mild on echo. PLAN: - CV stable. - Will sign off. Please call with any questions.
[2019-05-07] MEDS: Senokot S 8.6-50 MG TAB PO SCH (19:54)
[2019-05-07] MEDS: Amlodipine 5 MG TAB PO SCH (19:54)
[2019-05-07] MEDS: Atorvastatin Calcium 20 MG TAB PO SCH (19:54)
[2019-05-08 04:58] LABS: Anion Gap 11 mmol/L (10-20); BUN (Urea Nitrogen) 12 mg/dL (9.8-20.1); Calc. Creatinine Clearance 67 mL/min (70-130); Calcium 9.1 mg/dL (7.8-10.44); Carbon Dioxide 30 mmol/L (22-29); Chloride 104 mmol/L (98-107); Estimated GFR-MDRD 56; Glucose 114 mg/dL (70-105); Potassium 4.3 mmol/L (3.5-5.1); Sodium 141 mmol/L (136-145)
[2019-05-08] MEDS: Lactated Ringer's 1,000 ML IV SCH (04:59)
--- NOTE | 2019-05-08 05:49 | PDOC.FM ---
- Subjective Subjective: Doing well this morning, has no new complaints. - Objective MAR Reviewed: Yes Vital Signs & Weight: Vital Signs (12 hours) Temp Pulse Resp BP BP Pulse Ox 05/08/19 04:00 98.4 F 72 18 128/68 96 05/07/19 20:33 80 145/77 H 05/07/19 19:54 79 180/80 H 05/07/19 19:43 98.9 F 79 18 180/80 H 96 Weight Admit Weight 69.173 kg Weight 67.041 kg I&O: 05/06/19 05/07/19 05/08/19 06:59 06:59 06:59 Intake Total 19150 1979 Output Total 200 Balance 17150 1979 Result Diagrams: 05/07/19 04:03 05/08/19 04:03 Phys Exam - Physical Examination Constitutional: NAD HEENT: moist MMs Neck: supple, full ROM Respiratory: no wheezing, no rales, no rhonchi, clear to auscultation bilateral Cardiovascular: RRR, no significant murmur, no rub Gastrointestinal: soft, non-tender Musculoskeletal: pulses present Neurological: moves all 4 limbs Psychiatric: normal affect, A&O x 3 Skin: no rash, normal turgor Dx/Plan (1) TARI (acute kidney injury) Code(s): N17.9 - ACUTE KIDNEY FAILURE, UNSPECIFIED Status: Acute (2) Abdominal pain Code(s): R10.9 - UNSPECIFIED ABDOMINAL PAIN Status: Acute (3) Hyperkalemia Code(s): E87.5 - HYPERKALEMIA Status: Acute (4) Splenomegaly Code(s): R16.1 - SPLENOMEGALY, NOT ELSEWHERE CLASSIFIED Status: Acute (5) CLL (chronic lymphocytic leukemia) Code(s): C91.10 - CHRONIC LYMPHOCYTIC LEUK OF B-CELL TYPE NOT ACHIEVE REMIS Status: Chronic (6) HTN (hypertension) Code(s): I10 - ESSENTIAL (PRIMARY) HYPERTENSION Status: Chronic - Plan Plan: CLL with LUQ abd pain - splenomegaly, likely related - Abd CT: abdominal adenopathy, splenomegaly, bilateral hydronephrosis - continue norco prn for pain - Dr Olivares consulted in ED, appreciate recs. Rituxan not available inpatient. Patient can f/u outpatient with oncology Friday. - allopurinol 200mg bid and trend TLS labs Type 2 NSTEMI, resolved. - trops: 0.465>0.224> <0.01 - cards consult, appreciate recommendations - ECHO WNL HTN - cont home meds HLD: - cont home meds TARI: -creatinine 1.13>1.02>0.98, GFR improved -Abd CT: bilateral hydronephrosis; R ureter calcification noted - IVF hydration, trend Hyperkalemia, resolved - 6.8>4.0>5.4 >3.4>4.3 DVTppx: lovenox Diet: HH Dispo: Stable Code: Full Addendum - Attending - Attending Attestation Date/Time: 05/08/19 3073 I personally evaluated the patient and discussed the management with Dr. Saavedra I agree with the History, Examination, Assessment and Plan documented above with any addition or exceptions noted below. Patient stable for dismissal f/u oncology start CML treatment and repeat potassium admonished to stop smoking and endorsed her efforts in cutting back.
[2019-05-08] MEDS: Allopurinol 100 MG TAB PO SCH (09:35)
[2019-05-08] MEDS: Senokot S 8.6-50 MG TAB PO SCH (09:35)
[2019-05-08] MEDS: FLUoxetine HCl 20 MG CAP PO SCH (09:36)
[2019-05-08] MEDS: Polyethylene Glycol 3350 17 GM Packet PO SCH (09:36)
[2019-05-08] MEDS: Enoxaparin Sodium 40 MG/0.4 ML SYRINGE SC SCH (09:36)
[2019-05-08] MEDS: Famotidine 20 MG TAB PO SCH (09:36)
[2019-05-08 11:37] VITALS: BP 137/78; TEMP 98.7
--- NOTE | 2019-05-10 11:37 | DIS ---
DATE OF ADMISSION: 05/05/2019 DATE OF DISCHARGE: 05/08/2019 RESIDENT: Jovita Salas MD ADMITTING ATTENDING: Galileo Gomez MD DISCHARGE ATTENDING: Salbador Luther MD CONSULTS: 1. Dr. Kapadia, Cardiology. 2. Candi Perez, TINO, Oncology. PROCEDURES: Echocardiogram, ejection fraction 55% to 60%. Normal diastolic function. Abdomen and pelvis CT, extensive abdominal lymphadenopathy surrounding the aorta and IVC, splenomegaly, bilateral hydronephrosis. PRIMARY DIAGNOSIS: Chronic lymphocytic leukemia with abdominal pain. SECONDARY DIAGNOSES: 1. Type 2 non-ST elevation myocardial infarction. 2. Hypertension. 3. Hyperlipidemia. 4. Acute kidney injury. 5. Hyperkalemia. DISCHARGE MEDICATIONS: 1. Amlodipine. 2. Atorvastatin. 3. Celebrex. 4. Fluoxetine. 5. Allopurinol. 6. Zofran. 7. MiraLAX. DISCONTINUED MEDICATIONS: None. HISTORY OF PRESENT ILLNESS AND HOSPITAL COURSE: Jeane is a 53-year-old female with history of chronic lymphocytic leukemia followed by Dr. Olivares, hypertension, hyperlipidemia, anxiety, tobacco abuse, who presented for left upper quadrant abdominal pain. She reports that she has had intermittent pain over the last week but it acutely worsened. She was noted to have an elevated troponin of 0.4 and TARI as well as hyperkalemia. She was fluid resuscitated and then given Lovenox. Initial labs notable for white blood cell count of 290, potassium downtrended from 6.8 to 4.3 on the day of discharge. Oncology was consulted and recommended starting allopurinol for possible tumor lysis syndrome in the setting of chemotherapy. She is scheduled to start chemotherapy on the Friday following discharge. Once the patient's pain was under control, she felt ready for discharge. DISPOSITION: Guarded. DISCHARGE INSTRUCTIONS: 1. Location: Home. 2. Diet: Regular. 3. Activity: Ad anup. 4. Followup: Follow up with Oncology on Friday and primary care physician within 1 week. Job ID: [id number]
== END 2019-05-08 11:45 | disposition home or self-care (01) | DRG 840 ==
LOC: ERS 12:50 → ERHOLD 15:54 → 2NO 19:17
PROVIDERS: ADMIT Family Medicine; ATTEND Family Medicine
DX: C91.10 Chronic lymphocytic leukemia of B-cell type not having achieved remission (principal); I21.A1 Myocardial infarction type 2; N17.9 Acute kidney failure, unspecified; N13.2 Hydronephrosis with renal and ureteral calculous obstruction; R18.8 Other ascites; E78.5 Hyperlipidemia, unspecified; I10 Essential (primary) hypertension; E87.5 Hyperkalemia; F41.9 Anxiety disorder, unspecified; F17.210 Nicotine dependence, cigarettes, uncomplicated; Z90.710 Acquired absence of both cervix and uterus; Z79.899 Other long term (current) drug therapy
CPT/HCPCS: 36415; 36416; 71045; 74177; 80048; 80053; 81003; 81015; 82553; 83615; 84100; 84484; 84550; 85025; 93005; 93306; 94640; 96361; 96374; 96375; 96376; J1650; J1815; J1940; J2270; J7611

== ENCOUNTER 2019-05-26 13:29 | Inpatient (IN) | payer OTHER ==
[2019-05-26] MEDS ORDERED: Morphine 4 MG/ML VIAL ONE (14:24)
[2019-05-26] MEDS ORDERED: Ondansetron PF 4 MG/2 ML Vial ONE (14:24)
[2019-05-26 14:46] LABS: Hemoglobin 11.7 g/dL (12.0-16.0); Mean Corpuscular HGB CONC 30.4 g/dL (32.0-36.0); Mean Corpuscular Hemoglobin 28.7 pg (27.0-31.0); Mean Corpuscular Volume 94.4 fL (78.0-98.0); Mean Platelet Volume 7.4 fL (7.4-10.4); Platelet Count 136 thou/uL (130-400); RBC Distribution Width 13.3 % (11.5-14.5); Red Blood Cell (RBC) Count 4.07 mill/uL (4.20-5.40)
[2019-05-26 14:51] LABS: Bilirubin Negative (Negative); Blood, Urine Negative (Negative); Clarity Clear (Clear); Glucose, Urine (Dipstick) Normal (Negative); Leukocyte Negative Leu/uL (Negative); Nitrite Negative (Negative); Protein, Urine (Dipstick) Negative (Neg-Trace); Urobilinogen Normal mg/dL (Less than 2)
[2019-05-26] MEDS ORDERED: Iopamidol 370 76% 100 ML VIAL ONE (14:55)
[2019-05-26 15:02] LABS: ALT (SGPT) Less than 7 U/L (8-55); AST (SGOT) 25 U/L (5-34); Albumin 4.4 g/dL (3.5-5.0); Alkaline Phosphatase 189 U/L (40-110); Anion Gap 12 mmol/L (10-20); BUN (Urea Nitrogen) 16 mg/dL (9.8-20.1); Bilirubin, Total 0.5 mg/dL (0.2-1.2); Calc. Creatinine Clearance 0 mL/min (70-130); Calcium 9.5 mg/dL (7.8-10.44); Carbon Dioxide 28 mmol/L (22-29); Chloride 105 mmol/L (98-107); Estimated GFR-MDRD 47; Globulin 2.9 g/dL (2.4-3.5); Glucose 103 mg/dL (70-105); Lipase 46 U/L (8-78); Potassium 5.9 mmol/L (3.5-5.1); Protein, Total 7.3 g/dL (6.0-8.3); Sodium 139 mmol/L (136-145)
[2019-05-26 15:15] LABS: Anisocytosis SLIGHT = 6-15 cells (100X) (0-5/hpf); Hypochromia SLIGHT = 6-15 cells (100X) (0-5/hpf); Lymphocytes 91 % (21-51); MDiff Complete? YES; Monocytes 2 % (0-10); Neutrophil 2 % (42-75); Platelet Morphology Comment Appears Adequate; Polychromasia SLIGHT = 2-3 cells (100X) (0-2/hpf); Reactive Lymphocytes 5 % (0-10)
--- NOTE | 2019-05-26 15:50 | CT ---
EXAM: CT ABDOMEN AND PELVIS HISTORY: Abdominal pain. Patient was diagnosed with CLL one year ago. Patient has not undergone treat ment. COMPARISON: 05/05/2019 Procedure: Multiple contiguous axial images were obtained and a CT of the abdomen and pelvis with IV contrast. C oronal reformats were performed. FINDINGS: Lower Chest: Minimal dependent atelectatic changes in the lung bases Vessels: Normal caliber aorta. No periaortic fat stranding Heart: Normal heart size. No significant pericardial fluid Abdomen: Portal vein:Patent Gallbladder: No calcified gallstones. Normal caliber wall. Liver: No enhancing masses. Right hepatic lobe measures 21.6 cm. Pancreas: within normal limits. Spleen: Homogeneous enhancement. Craniocaudal dimension of the spleen is 23.6 cm. Adrenals: within normal limits. Kidneys: There is bilateral [id number] hydronephrosis and hydroureter. There is enhancement of both ureters suggesting an ascending urinary tract infection. No evidence of nonobstructing calculus. Enhancement of the renal collecting systems is similar to the previous examination. Peritoneum: No ascites or free air, no fluid collection. Bowel: Limited evaluation due to the lack of oral contrast administration. No evidence of bowel obstr uction. Ileocecal junction is unremarkable. Normal caliber appendix. Scattered fecal material in a nondistended, nondilated colon. Mesentery and Retroperitoneum: Markedly enlarged gastrohepatic, retrocrural and periportal lymphadeno walker. [employer] periportal lymphadenopathy measures 4.3 x 3.8 cm. Enlarged gastrohepatic lymph nodes measure 2.4 x 1.7 cm. There is bulky retroperitoneal lymphadenopathy with markedly periao rtic and aortocaval lymphadenopathy. Lymphadenopathy measures 7.4 x 5.5 cm. There is mass effect upon both renal arteries without complete obscuration. There is mass effect and partial obscuration o f the inferior vena cava. There is evidence of bulky lymphadenopathy extending into the presacral space and is noted to be along the expected course of both ureters. Abdominal Wall: No acute abnormalities Additional findings: There is evidence of splenic varices and to lesser extent gastroesophageal varic es. Pelvis: Reproductive Organs: Surgically absent uterus. Pelvis: Bulky bilateral external iliac lymph nodes. [employer] left external iliac lymphadenopath y measures 4.9 x 3.0 cm, previously measuring 4.9 x 3.0 cm. Additional enlarged bilateral inguinal lymph nodes are noted. [employer] enlarged left inguinal lymph node measures 2.1 x 1.0 cm Bladder: within normal limits. Bones: No lytic or blastic lesions within the osseous structures IMPRESSION: 1. Moderate bilateral hydronephrosis predominantly due to bulky lymphadenopathy causing mass effect u otf both distal ureters. Previously suggested obstructing calculus along the course of right ureter appears to be extra ureteral in location. Enhancement of both ureters is likely due to a ascending ur inary tract infection. . 2. Extensive bulky lymphadenopathy involving the gastrohepatic ligament, periportal region, retroperi toneum and the left/right hemipelvis including the presacral space as described above. 3. Lymphadenopathy causes mass effect upon the inferior vena cava and renal artery. 4. Hepatosplenomegaly. Transcribed Date/Time: 05/26/2019 4:18 PM
[2019-05-26 19:16] VITALS: BMI 22.6
[2019-05-26] MEDS ORDERED: Ondansetron ODT 4 MG TAB SL PRN (19:16)
[2019-05-26] MEDS ORDERED: Ondansetron PF 4 MG/2 ML Vial IVP PRN ×2 (19:16→19:50)
[2019-05-26] MEDS ORDERED: Acetaminophen 325 MG TAB PO PRN (19:16)
[2019-05-26] MEDS ORDERED: HYDROcodone/Acetaminophen 5/325 mg Tablet PO PRN ×2 (19:16)
--- NOTE | 2019-05-26 19:46 | PDOC.FPRHP ---
- History of Present Illness Chief Complaint: abdominal pain History of Present Illness: Patient is a 53F with PMHx of CLL (not yet treated), HTN, migraines presenting to the ED for abdominal pain. Patient had a recent admission for similar pain. It was deduced that her pain was likely due to splenomegaly and abdominal distension from her lymphadenopathy from the CLL. Patient has not yet started her chemotherapy due to financial issues, though she has an appointment to start on 05/31. Patient reports that for the last several days she has had persistent dull- sharp abdominal pain, largely in the LUQ and throughout the right side of her abdomen. She reports that it worsens with acute movements or bending over. She denies any n/v/d, hematochezia/melena/hematemesis, dysuria, increased or decreased urinary frequency, hematuria. Per the ED physician urology was called, and due to the mass effect on both distal ureters, recommended likely stents. Oncology, Dr. Olivares, was called, and he did not encourage any changes to the plan of care from her upcoming appointment on 05/31. ED Course: 4mg morphine, 4mg zofran - Allergies/Adverse Reactions Allergies Allergy/AdvReac Type Severity Reaction Status Date / Time No Known Allergies Allergy Verified 05/05/19 20:13 - Home Medications Medication Instructions Recorded Confirmed Type Amlodipine [Norvasc] 5 mg PO HS 05/05/19 05/26/19 History Atorvastatin Calcium 20 mg PO HS 05/05/19 05/26/19 History Celecoxib [Celebrex] 200 mg PO HS 05/05/19 05/26/19 History FLUoxetine HCl 20 mg PO DAILY 05/05/19 05/26/19 History Allopurinol [Zyloprim] 200 mg PO BID 30 Days #60 tablet 05/08/19 05/26/19 Rx Acetaminophen W/ Codeine [Tylenol 1 tab PO Q6HR PRN 05/26/19 05/26/19 History #3] - History PMHx: CLL (untreated), HTN, migraines PSHx: R hand sx, hysterectomy FHx: non-contributory Social: 1/2ppd smoker, occasional etoh use, no drug use - Review of Systems General: denies: fever/chills Eyes: denies: eye pain, vision changes ENT: denies: nasal congestion, rhinorrhea Respiratory: denies: cough, shortness of breath Cardiovascular: denies: chest pain, edema Gastrointestinal: reports: abdominal pain. denies: nausea, vomiting, diarrhea, constipation Skin: denies: rashes, lesions Musculoskeletal: denies: pain, tenderness Neurological: denies: syncope, seizure Psychological: denies: anxiety, depression - Vital signs BP: [145/85] HR: [77] RR: [16] Tmax: [98.5] Pox: [95]% on [RA] Wt: [69kg] - Physical Exam Constitutional: NAD, awake, alert and oriented, well developed HEENT: normocephalic and atraumatic, MMM Neck: supple, FROM, other (LAD posterior cervical and anterior cervical) Chest: no-tender to palpation, no lesions Heart: RRR, normal S1/S2 Lungs: CTAB, no respiratory distress Abdomen: other (abdominal distention, ttp RUQ and slightly throughout) Musculoskeletal: normal structure, normal tone, ROM grossly normal Neurological: no focal deficit, normal sensation Skin: no rash/lesions, good turgor Heme/Lymphatic: no unusual bruising or bleeding, no purpura Psychiatric: normal mood and affect, good judgment and insight FMR H&P: Results - Labs Result Diagrams: 05/27/19 04:53 05/26/19 22:39 Lab results: WBC 243.0 thou/uL (4.8-10.8) H* 05/26/19 14:28 Hgb 11.7 g/dL (12.0-16.0) L 05/26/19 14:28 Hct 38.4 % (36.0-47.0) 05/26/19 14:28 MCV 94.4 fL (78.0-98.0) 05/26/19 14:28 Plt Count 136 thou/uL (130-400) 05/26/19 14:28 Sodium 139 mmol/L (136-145) 05/26/19 14:28 Potassium 5.9 mmol/L (3.5-5.1) H 05/26/19 14:28 Chloride 105 mmol/L (98-107) 05/26/19 14:28 Carbon Dioxide 28 mmol/L (22-29) 05/26/19 14:28 BUN 16 mg/dL (9.8-20.1) 05/26/19 14:28 Creatinine 1.19 mg/dL (0.6-1.1) H 05/26/19 14:28 Glucose 103 mg/dL (70-105) 05/26/19 14:28 Lactic Acid 1.2 mmol/L (0.5-2.2) 05/26/19 14:28 Calcium 9.5 mg/dL (7.8-10.44) 05/26/19 14:28 Total Bilirubin 0.5 mg/dL (0.2-1.2) 05/26/19 14:28 AST 25 U/L (5-34) 05/26/19 14:28 ALT Less than 7 U/L (8-55) L 05/26/19 14:28 Alkaline Phosphatase 189 U/L (40-110) H 05/26/19 14:28 Serum Total Protein 7.3 g/dL (6.0-8.3) 05/26/19 14:28 Albumin 4.4 g/dL (3.5-5.0) 05/26/19 14:28 Lipase 46 U/L (8-78) 05/26/19 14:28 Urine Ketones Negative mg/dL (Negative) 05/26/19 14:35 Urine Blood Negative (Negative) 05/26/19 14:35 Urine Nitrite Negative (Negative) 05/26/19 14:35 Ur Leukocyte Esterase Negative Jigar/uL (Negative) 05/26/19 14:35 - EKG Interpretation EKG: NSR, no peaked t-waves - Radiology Interpretation CT scan - abdomen Status: report reviewed by me (moderate bilateral hydronephrosis due to bulky lymphadenopathy causing mass effect on both distal ureters, poss ascending UTI, bulk lymphadenopathy involving the gastro hepatic ligament, periportal region, retroperitoneum, and L/R hemipelvis, lymphadenopathy causing mass effect on the IVC and renal artery, hepatosplenomegaly) FMR H&P: A/P - Problem List (1) Lymphadenopathy Current Visit: Yes Status: Acute Code(s): R59.1 - GENERALIZED ENLARGED LYMPH NODES (2) TARI (acute kidney injury) Current Visit: No Status: Acute Code(s): N17.9 - ACUTE KIDNEY FAILURE, UNSPECIFIED (3) Abdominal pain Current Visit: No Status: Acute Code(s): R10.9 - UNSPECIFIED ABDOMINAL PAIN (4) Hyperkalemia Current Visit: No Status: Acute Code(s): E87.5 - HYPERKALEMIA (5) Splenomegaly Current Visit: No Status: Acute Code(s): R16.1 - SPLENOMEGALY, NOT ELSEWHERE CLASSIFIED (6) CLL (chronic lymphocytic leukemia) Current Visit: No Status: Chronic Code(s): C91.10 - CHRONIC LYMPHOCYTIC LEUK OF B-CELL TYPE NOT ACHIEVE REMIS (7) HTN (hypertension) Current Visit: No Status: Chronic Code(s): I10 - ESSENTIAL (PRIMARY) HYPERTENSION (8) Normocytic anemia Current Visit: No Status: Chronic Code(s): D64.9 - ANEMIA, UNSPECIFIED - Plan Patient is a 53F with PMHX of CLL (untreated), HTN, migraines, admitted for: #CLL with resultant diffuse lymphadenopathy #Abdominal pain likely 2/2 hepatosplenomegaly -CT scan demonstrated diffuse bulky lymphadenopathy throughout, with hepatosplenomegaly noted -Dr. Olivares, oncology, consulted from ED; did not recommend changes in plans of management for CLL at this time and patient to keep current 05/31 appointment -will provide IV morphine prn for abdominal pain -plan to possibly have ureteral stents placed by urology, which may help alleviate the bilateral hydronephrosis and improve some of her pain #TARI -creatinine 1.19, GFR 47 -likely due to mass effect on both distal ureters from bulky lymphadenopathy leading to bilateral hydronephrosis -urology consulted, appreciate recs -per ED report plans to possibly place ureteral stents #Hyperkalemia -uncertain etiology, possibly due to ureteral obstruction and TARI -potassium 5.9, no peaked-t waves on EKG -calcium wnl, phosphorus and uric acid pending to r/o tumor lysis syndrome -will provide NS at this time and continue to monitor -if potassium continues to be high can consider starting kayexalate #HTN -continue home meds #Migraines -continue home meds Diet: HH Dvtppx: lovenox Dispo: telemetry obs for management of intractable abdominal pain; management of and monitoring of hyperkalemia; urology consulted for bilateral distal ureter compression, appreciate recs Code: Full PCP: Damari FMPrecious H&P: Upper Level - Plan Date/Time: 05/26/191945 Gianni Mendes MD, have evaluated this patient and agree with findings/plan as outlined by architect intern resident. Pertinent changes/additions are listed here. Jeane Maldonado is a 53 year old F with a PMH of CLL, HTN, migraines for presented to the ED with abdominal pain and distention. She was recently admitted for similar symptoms. During that admission, it was thought that pain was likely 2/2 splenomegaly and significant abdominal lymphadenopathy from CLL. She has not yet started treatment for CLL but has been followed by Dr. Olivares and has appointment with on 05/31. The pain over the last 3-4 days has been constant, dull, mostly in LUQ and right side. Worse with movement. Denies any n/v, GI bleeding, fever, urinary symptoms. In the ED, Dr. Olivares was notified and did not recommend any changes other than keeping her upcoming appt. CT abd showed mod bilateral hydronephrosis due to mass effect from abdominal lymphadenopathy on b/l distal ureters. Urology was consulted from the ED and plan to place ureteral stents. In the ED, vitals were stable and wnl. Labs were significant for K 5.9, Cr 1.19, UA unremarkable. Otherwise normal. Admitting patient to medical for hyperkalemia, mod hydronephrosis due to distal ureteral compression. Urology consulted for ureteral stent placement, NPO at midnight. TARI likely post-renal from ureteral compression. Patient was hyperkalemic on admission. Will give fluid and repeat and if remains high, will give kayexelate. No EKG changes or sx of hyperkalemia present. Please see architect intern note above for full H&P, which I have reviewed and agree with. Code status: FULL Addendum - Attending - Attending Attestation Date/Time: 05/27/19 2426 I personally evaluated the patient and discussed the management with Dr. Church I agree with the History, Examination, Assessment and Plan documented above with any addition or exceptions noted below. See event note for details.
[2019-05-26] MEDS ORDERED: Ondansetron ODT 4 MG TAB PO PRN (19:50)
[2019-05-26] MEDS ORDERED: Calcium Carbonate 500 MG ChewTAB PO PRN (19:50)
[2019-05-26] MEDS: Sodium Chloride 0.9% 1,000 ML IV SCH (20:49)
[2019-05-26] MEDS: Morphine 4 MG/ML VIAL SLOW IVP PRN (22:01)
[2019-05-26] MEDS: Atorvastatin Calcium 20 MG TAB PO SCH (22:05)
[2019-05-26] MEDS: CeleCOXIB 100 MG CAP PO SCH (22:05)
[2019-05-26] MEDS: Allopurinol 100 MG TAB PO SCH (22:05)
[2019-05-26] MEDS: Amlodipine 5 MG TAB PO SCH (22:06)
[2019-05-26] MEDS: Nicotine 14 MG PATCH TD SCH (22:07)
--- NOTE | 2019-05-26 22:30 | PDOC.EVN ---
Addendum - Attending - Attending Attestation Date/Time: 05/26/19 9719 I personally evaluated the patient and discussed the management with Dr. Church/ Jaord I agree with the History, Examination, Assessment and Plan documented above with any addition or exceptions noted below. 53 yo WF PMH CLL. Presents with abdominal pain. Exam remarkable for hepatosplenomegaly and TTP throughout abdomen. Labs show elevated K at 5.9. EKG WNL. CT abdomen shows bilateral hydroureter and hydronephrosis 2/2 lymph node mass effect. Urology consulted in ER for possible stent placement. Kayxalate for hyperkalemia. Monitor on tele. Will discuss CLL treatment with oncology in the morning.
[2019-05-26 23:22] LABS: Phosphorus 3.7 mg/dL (2.3-4.7); Uric Acid 3.5 mg/dL (2.6-6.0)
[2019-05-27 00:25] LABS: Anion Gap 13 mmol/L (10-20); BUN (Urea Nitrogen) 18 mg/dL (9.8-20.1); Calc. Creatinine Clearance 52 mL/min (70-130); Calcium 9.6 mg/dL (7.8-10.44); Carbon Dioxide 29 mmol/L (22-29); Chloride 104 mmol/L (98-107); Estimated GFR-MDRD 41; Glucose 66 mg/dL (70-105); Sodium 141 mmol/L (136-145)
[2019-05-27 05:15] LABS: Hemoglobin 11.6 g/dL (12.0-16.0); Mean Corpuscular HGB CONC 33.7 g/dL (32.0-36.0); Mean Corpuscular Hemoglobin 31.7 pg (27.0-31.0); Mean Corpuscular Volume 93.8 fL (78.0-98.0); Mean Platelet Volume 7.6 fL (7.4-10.4); Platelet Count 117 thou/uL (130-400); RBC Distribution Width 13.2 % (11.5-14.5); Red Blood Cell (RBC) Count 3.65 mill/uL (4.20-5.40)
[2019-05-27] MEDS: Sodium Chloride 0.9% 1,000 ML IV SCH ×2 (05:38→15:25)
[2019-05-27 07:51] LABS: Lymphocytes 94 % (21-51); MDiff Complete? YES; Monocytes 2 % (0-10); Neutrophil 4 % (42-75); Platelet Morphology Comment Appears Decreased; Polychromasia SLIGHT = 2-3 cells (100X) (0-2/hpf)
--- NOTE | 2019-05-27 08:51 | PDOC.FM ---
- Subjective Subjective: Pt reports improvment on her abdominal pain, no new complaints at this time. no nausea/vomiting, no cp/sob - Objective Vital Signs & Weight: Vital Signs (12 hours) Temp Pulse Resp BP Pulse Ox 05/27/19 07:49 98.3 F 73 14 131/71 95 05/27/19 04:48 99.2 F 67 16 114/60 94 L 05/27/19 00:44 98.5 F 76 16 119/66 95 05/26/19 22:06 75 Weight Weight 69.717 kg I&O: 05/26/19 05/27/19 05/28/19 06:59 06:59 06:59 Intake Total 460 1216 Balance 460 1216 Result Diagrams: 05/27/19 04:53 05/26/19 22:39 Phys Exam - Physical Examination Constitutional: NAD HEENT: moist MMs, sclera anicteric Neck: no JVD, supple Respiratory: no wheezing, clear to auscultation bilateral Cardiovascular: RRR, no significant murmur Gastrointestinal: soft mild ttp diffusely Musculoskeletal: no edema, pulses present Neurological: normal sensation, moves all 4 limbs Psychiatric: normal affect, A&O x 3 Skin: no rash, normal turgor Dx/Plan (1) Lymphadenopathy Code(s): R59.1 - GENERALIZED ENLARGED LYMPH NODES Status: Acute (2) Abdominal pain Code(s): R10.9 - UNSPECIFIED ABDOMINAL PAIN Status: Acute (3) Anxiety Code(s): F41.9 - ANXIETY DISORDER, UNSPECIFIED Status: Acute (4) Hyperkalemia Code(s): E87.5 - HYPERKALEMIA Status: Acute (5) Splenomegaly Code(s): R16.1 - SPLENOMEGALY, NOT ELSEWHERE CLASSIFIED Status: Acute (6) CLL (chronic lymphocytic leukemia) Code(s): C91.10 - CHRONIC LYMPHOCYTIC LEUK OF B-CELL TYPE NOT ACHIEVE REMIS Status: Chronic (7) HTN (hypertension) Code(s): I10 - ESSENTIAL (PRIMARY) HYPERTENSION Status: Chronic - Plan Plan: Patient is a 53F with PMHX of CLL (untreated), HTN, migraines, admitted for: Intractible Abdominal pain likely 2/2 hepatosplenomegaly, lymphadenopathy, and hydronephrosis 2/2 ureter compression A-CT scan demonstrated diffuse bulky lymphadenopathy throughout, with hepatosplenomegaly noted, compression of ureters, IVC, and renal arteries. Urology consulted, plans for possible stent placement today. P-will provide IV morphine prn for abdominal pain -f/u urology recs, possible stents to be placed. CLL with resultant diffuse lymphadenopathy A-Dr. Olivares, oncology, consulted from ED; did not recommend changes in plans of management for CLL at this time and patient to keep current 05/31 appointment P- plan for outpt f/u on 05/31 TARI A- improved. Likely from mass effect on ureters as above P- plan as listed above Hyperkalemia A- improved 5.9->5. possibly due to ureteral obstruction and TARI. calcium wnl, phosphorus and uric acid obtained and WNL to r/o tumor lysis syndrome P- will continue to monitor HTN -continue home meds Migraines -continue home meds Dvtppx: lovenox Code: Full Addendum - Attending - Attending Attestation Date/Time: 05/27/19 1410 I personally evaluated the patient and discussed the management with Dr. Finnegan. I agree with the History, Examination, Assessment and Plan documented above with any addition or exceptions noted below. Await urology, continue pain control.
[2019-05-27] MEDS ORDERED: Enoxaparin Sodium 40 MG/0.4 ML SYRINGE SC SCH (09:00)
[2019-05-27] MEDS: Allopurinol 100 MG TAB PO SCH ×2 (10:44→21:52)
[2019-05-27] MEDS: FLUoxetine HCl 20 MG CAP PO SCH (10:44)
[2019-05-27] MEDS: Acetaminophen 325 MG TAB PO PRN (10:48)
--- NOTE | 2019-05-27 12:59 | CON ---
DATE OF CONSULTATION: 05/26/2019 CONSULTING: Emergency room. REASON FOR CONSULTATION: Bilateral hydronephrosis. HISTORY OF PRESENT ILLNESS: Ms. Maldonado is a 53-year-old white female with a history of CLL, which currently has not been treated. She has had prior admissions with complaints of abdominal pain in the past, most likely secondary from lymphadenopathy from the CLL. She had another exacerbation of this yesterday and came into the hospital with reports of abdominal pain with nausea, but no vomiting. The pain had gotten out of control approximately up to about 7/10 or 8/10, so she came into the ER where she underwent imaging and labs. The imaging which demonstrated bilateral [id number] hydronephrosis with mild renal insufficiency. Due to lack of funding an insurance, she has not yet started any type of treatment for her chemotherapy for the CLL. She was admitted to the hospital secondary to electrolyte abnormalities, acute kidney injury, and further management options of her hydronephrosis. On my discussion with the patient, she reports that she is still urinating. She denies seeing any hematuria. She denies any fevers, urinary tract infections, or vomiting. Her pain is improved, but she is still having abdominal discomfort. She has no history of nephrolithiasis. ALLERGIES: NONE. HOME MEDICATIONS: 1. Amlodipine. 2. Atorvastatin. 3. Celebrex. 4. Fluoxetine. 5. Allopurinol. 6. Tylenol with codeine. PAST MEDICAL HISTORY: 1. CLL. 2. Hypertension. 3. Migraines. PAST SURGICAL HISTORY: 1. Right hand surgery. 2. Hysterectomy. FAMILY HISTORY: Noncontributory. SOCIAL HISTORY: The patient is a current smoker and smokes about half a pack per day. She drinks alcohol only occasionally, but denies abuse. She denies any illicit drug use. REVIEW OF SYSTEMS: A 12-point review of systems reviewed and negative other than what was commented on the HPI. PHYSICAL EXAMINATION: VITAL SIGNS: Temperature 98.3, pulse 73, respirations 14, blood pressure 131/71, and saturations 95% on room air. GENERAL: No apparent distress. Communicative and alert. Well nourished and well developed. Appears stated age. Answering questions appropriately. HEENT: Normocephalic and atraumatic. Pupils are symmetric and round. Sclerae nonicteric. Trachea midline. Moist mucous membranes. CARDIOVASCULAR: Regular rate and rhythm. Normal S1 and S2. CHEST: Symmetric expansion of the lungs. Nonlabored breathing. Clear anteriorly. ABDOMEN: Soft, mild distention. Tender to palpation in the upper abdomen and somewhat diffusely throughout the lower and mid abdomen. There are no obvious palpable masses, but the patient is somewhat overweight, which limits exam. Positive bowel sounds. No CVA tenderness. : Deferred at this time. EXTREMITIES: No clubbing, cyanosis, or edema. MUSCULOSKELETAL: No joint deformities or joint erythema noted. Full range of motion. SKIN: Warm and dry. No rash or lesions. Good turgor. NEUROLOGIC: Cranial nerves 2 through 12 grossly intact. No focal or sensory or motor deficits identified. PSYCHIATRIC: Alert and oriented x3. Appropriate mood and affect. LYMPHATIC: No obvious lymphadenopathy in the supraclavicular or axillary regions. The patient does have no lymphadenopathy on imaging. LABORATORY EVALUATION: The full set of labs are in the [facility] system, which I have reviewed. Of note, the patient's white count is 201 with a hemoglobin of 11.6, and platelet count of 117. Creatinine is currently 1.34, which is worsened from 1.19 yesterday. Urinalysis is completely normal currently. CT of the abdomen and pelvis done on 05/25, demonstrates moderate bilateral hydronephrosis secondary to bulky lymphadenopathy, causing mass effect upon both distal ureters. There is a calcification along the course of the right ureter, but appears to be in an extra ureteral location. There is bulky lymphadenopathy involving the gastrohepatic ligament, periportal regions, retroperitoneum, right and left hemipelvis including the presacral spaces. There is also mass effect upon the inferior vena cava and renal artery. Hepatosplenomegaly. ASSESSMENT AND PLAN: A 53-year-old white female with worsening chronic lymphocytic leukemia, resulting in bulky lymphadenopathy and causing bilateral ureteral obstruction, resulting in acute kidney injury. Without treatment, I do predict that she will probably end up in renal failure. I would recommend drainage, but we discussed both urinary stents as well as nephrostomy tubes. The nephrostomy tubes would be recommended for several reasons. Stents to have a higher failure rate with extrinsic compression, whereas nephrostomy tubes will more successfully drain the kidneys without failure. Additionally, the nephrostomy tubes can be more easily changed at a lower cost than returning to the OR repeatedly for ureteral stent exchanges, which will become costly in the future given that the patient is uninsured. Additionally, if she is lost to followup, nephrostomy tubes can more easily be managed or removed in the setting of failure to keep followup appointments. She does understand that the tubes will have to be kept to external drainage bags. The tubes will also have to be changed every 2 months and she does understand that leaving a tube in without change can result in obstruction, stone formation, infections, and even loss of the kidney. She states she will keep followup appointments and I will see her back in followup after discharge. For now, she should continue to be medically managed for her electrolytes, stay n.p.o. until her nephrostomy tubes can be placed bilaterally. I will then manage her nephrostomy tubes postoperatively and then follow up as an outpatient. We will plan nephrostograms in the future after she starts chemotherapy to check for patency, at which point the nephrostomy tubes could probably be removed. Job ID: [id number]
[2019-05-27 13:08] LABS: Prothrombin Time 13.3 SEC (12.0-14.7)
[2019-05-27 13:09] LABS: PTT 32.9 SEC (22.9-36.1)
[2019-05-27] MEDS: Atorvastatin Calcium 20 MG TAB PO SCH (21:51)
[2019-05-27] MEDS: Amlodipine 5 MG TAB PO SCH (21:51)
[2019-05-27] MEDS: CeleCOXIB 100 MG CAP PO SCH (21:51)
[2019-05-27] MEDS: Nicotine 14 MG PATCH TD SCH (21:52)
[2019-05-28] MEDS: Sodium Chloride 0.9% 1,000 ML IV SCH ×4 (01:07→22:01)
[2019-05-28] MEDS: FLUoxetine HCl 20 MG CAP PO SCH (07:52)
[2019-05-28] MEDS: Allopurinol 100 MG TAB PO SCH ×2 (07:52→20:34)
--- NOTE | 2019-05-28 08:05 | PDOC.FM ---
- Subjective Subjective: resting comfortably, reports abdominal pain is controlled. no fever/chills, no cp, no sob - Objective Vital Signs & Weight: Vital Signs (12 hours) Temp Pulse Resp BP BP Pulse Ox 05/28/19 03:48 97.6 F 69 20 132/76 97 05/27/19 23:37 98.0 F 75 16 126/61 95 05/27/19 21:51 80 135/75 Weight Admit Weight 69.717 kg Weight 69.218 kg I&O: 05/27/19 05/28/19 05/29/19 06:59 06:59 06:59 Intake Total 460 4220 Balance 460 4220 Result Diagrams: 05/27/19 04:53 05/26/19 22:39 Phys Exam - Physical Examination Constitutional: NAD HEENT: moist MMs, sclera anicteric Neck: supple, full ROM Respiratory: no wheezing, clear to auscultation bilateral Cardiovascular: RRR, no significant murmur Gastrointestinal: soft, no distention Musculoskeletal: no edema, pulses present Neurological: normal sensation, moves all 4 limbs Psychiatric: normal affect, A&O x 3 Skin: no rash, normal turgor Dx/Plan (1) Lymphadenopathy Code(s): R59.1 - GENERALIZED ENLARGED LYMPH NODES Status: Acute (2) Abdominal pain Code(s): R10.9 - UNSPECIFIED ABDOMINAL PAIN Status: Acute (3) Anxiety Code(s): F41.9 - ANXIETY DISORDER, UNSPECIFIED Status: Acute (4) Hyperkalemia Code(s): E87.5 - HYPERKALEMIA Status: Acute (5) Splenomegaly Code(s): R16.1 - SPLENOMEGALY, NOT ELSEWHERE CLASSIFIED Status: Acute (6) CLL (chronic lymphocytic leukemia) Code(s): C91.10 - CHRONIC LYMPHOCYTIC LEUK OF B-CELL TYPE NOT ACHIEVE REMIS Status: Chronic (7) HTN (hypertension) Code(s): I10 - ESSENTIAL (PRIMARY) HYPERTENSION Status: Chronic - Plan Plan: Patient is a 53F with PMHX of CLL (untreated), HTN, migraines, admitted for: Intractible Abdominal pain likely 2/2 hepatosplenomegaly, lymphadenopathy, and hydronephrosis 2/2 ureter compression A-CT scan demonstrated diffuse bulky lymphadenopathy throughout, with hepatosplenomegaly noted, compression of ureters, IVC, and renal arteries. Urology consulted, plans for urostomy tube placement today. P-will provide IV morphine prn for abdominal pain -f/u urology recs, urostromy tubes to be placed. CLL with resultant diffuse lymphadenopathy A-Dr. Olivares, oncology, consulted from ED; did not recommend changes in plans of management for CLL at this time and patient to keep current 05/31 appointment P- plan for outpt f/u on 05/31 TARI A- Likely from mass effect on ureters as above P- plan as listed above Hyperkalemia A- improved 5.9->5. possibly due to ureteral obstruction and TARI. calcium wnl, phosphorus and uric acid obtained and WNL to r/o tumor lysis syndrome P- will continue to monitor HTN -continue home meds Migraines -continue home meds Dvtppx: lovenox to be restarted after nephrostomy tubes are placed. Code: Full Addendum - Attending - Attending Attestation Date/Time: 05/28/19 2597 I personally evaluated the patient and discussed the management with Dr. Finnegan. I agree with the History, Examination, Assessment and Plan documented above with any addition or exceptions noted below.
[2019-05-28] MEDS ORDERED: cefTRIAXone\\ROCEPHIN 1 GM in Sodium Chloride 0.9% 100 ML IVPB SCH (09:15)
[2019-05-28] MEDS ORDERED: Iopamidol 300 61% 50 ML VIAL FS ONE (09:57)
[2019-05-28] MEDS ORDERED: Fentanyl 100 MCG/2 ML VIAL ONE ×2 (10:23→10:59)
[2019-05-28] MEDS ORDERED: Midazolam HCl 2 mg/2 ml Vial ONE (10:23)
[2019-05-28] MEDS ORDERED: Sodium Chloride 0.9% 30 ML ONE (10:39)
[2019-05-28] MEDS: Acetaminophen 325 MG TAB PO PRN ×2 (13:44→22:07)
--- NOTE | 2019-05-28 14:04 | SPC ---
PROCEDURE: Antegrade bilateral pyelograms and placement of bilateral percutaneous nephrostomy tubes Conscious sedation PROVIDED CLINICAL HISTORY: Patient with CLL and retroperitoneal lymphadenopathy resulting in ureteral obstruction and subsequent ly bilateral hydronephrosis. Bilateral nephrostomy tube placement was requested. COMPARISON: None TECHNIQUE: The procedure including the risks and complications were explained to the patient, and informed conse nt was obtained. Patient was placed on the angiography table in the prone position. Limited sonographic evaluation of each kidney was performed, and an area overlying a posterior calyx in each kidney was marked and then meticulously prepped and draped in usual sterile fashion. Conscious sedation was performed with the intravenous administration of fentanyl and Versed. The raghav ent was monitored throughout the procedure and immediately postprocedure for approximately 30 minutes. No complications were noted after administration of conscious sedation. Rocephin (1 g) was a dministered intravenously prior to the procedure. Skin and subcutaneous soft tissues overlying superior pole right renal calyx were infiltrated with bu ffered 1% lidocaine for local anesthesia. Superior pole posterior left renal calyx was accessed utilizing micropuncture technique. Antegrade pyelogram was performed demonstrating right hydronephros is and hydroureter. The needle was exchanged over a 0.018 inch guidewire for a 5 Indian introducer catheter. A 0.035 inch Amplatz guidewire was placed. The 5 Indian catheter was exchanged over the nirali dewire for an 8 Indian tissue dilator followed by placement of an 8 Indian percutaneous nephrostomy tube. The percutaneous nephrostomy tube was placed within the right renal pelvis. Contrast injection confirms placement in the collecting system. Catheter was sutured in place utilizing 2-0 Ethilon suture material and placed to gravity drainage. The skin and subcutaneous tissues overlying a posterior calyx midportion right kidney were infiltrate d with buffered 1% lidocaine for local anesthesia. Utilizing concurrent real time ultrasound guidance, a posterior calyx was accessed utilizing micropuncture technique. An antegrade pyelogram wa s performed. The needle was exchanged over a 0.018 inch guidewire for a 5 Indian introducer sheath. This was exchanged over a 0.035 inch Amplatz guidewire for an 8 Indian tissue dilator followed by altaf cement of an 8 Indian nephrostomy tube. Distal portion of the nephrostomy tube was coiled within the renal pelvis. Contrast injection confirms placement in the renal collecting system. The catheter was sutured in place utilizing 2-0 Ethilon suture material and placed to gravity drainage. Dry sterile dressings were placed at catheter entry sites. The patient tolerated the procedure well a nd without immediate consultation. Patient transported to her hospital room in stable condition. IMPRESSION: 1. Bilateral hydronephrosis and hydroureter. 2. Technically successful percutaneous placement of bilateral 8 Indian nephrostomy tubes. Clear urine was obtained from each renal collecting system.
--- NOTE | 2019-05-28 16:06 | PRG ---
DATE OF SERVICE: 05/28/2019 SUBJECTIVE: The patient states she is feeling okay. She had nephrostomy tubes placed. She had a little bit of soreness. OBJECTIVE: VITAL SIGNS: Temperature 98.7, pulse 70, respirations 20, blood pressure 124/69, saturation 96% on room air. GENERAL: No apparent distress. Communicative and alert. CARDIOVASCULAR: Regular rate and rhythm. ABDOMEN: Soft, mildly tender to palpation, mildly distended. BACK: Nephrostomy tubes in place bilaterally to gravity drainage with slightly bloody urine. EXTREMITIES: No significant edema. LABORATORY EVALUATION: There are no new labs today to review. ASSESSMENT AND PLAN: A 53-year-old white female with chronic lymphocytic leukemia and bulky lymphadenopathy with bilateral ureteral obstruction, status post bilateral nephrostomy tube placements. We will plan for a BMP tomorrow to ensure that her creatinine is resolving. At that point, nothing further needs to be done from a urologic standpoint. The patient will need to start chemotherapy when feasible by the Oncology team. She will be at risk for tumor lysis syndrome given her significant elevation in white count. We will continue the nephrostomy tubes during this time until she has been adequately treated for her leukemia, and once she has sufficient regression of her lymphadenopathy, antegrade nephrostograms can be performed and the nephrostomy tubes can be removed if there is patency to the bladder. In the meantime, she will continue to get nephrostomy tube changes every 2 months and should follow up with me as an outpatient. Again, she does understand the risks of failing to follow up and keeping nephrostomy tubes in without proper care and exchanges resulting in kidney damage, stone formation, infections, and even loss of the kidney. Dr. Bucky Nascimento will be covering on my behalf over the weekend and we will follow the patient to ensure that she is doing okay with her nephrostomy tubes. The patient can then follow up with me on an outpatient basis once she is discharged. Job ID: [id number]
[2019-05-28] MEDS: Amlodipine 5 MG TAB PO SCH (20:33)
[2019-05-28] MEDS: CeleCOXIB 100 MG CAP PO SCH (20:33)
[2019-05-28] MEDS: Morphine 4 MG/ML VIAL SLOW IVP PRN (20:34)
[2019-05-28] MEDS: Atorvastatin Calcium 20 MG TAB PO SCH (20:34)
[2019-05-28] MEDS: Nicotine 14 MG PATCH TD SCH (20:37)
[2019-05-29] MEDS: Morphine 4 MG/ML VIAL SLOW IVP PRN (01:01)
--- NOTE | 2019-05-29 06:10 | PDOC.FM ---
- Subjective Subjective: Patient doing well this morning. Says she has some mild back pain near surgical sites. She has red tinged urine in bilateral nephrostomy tube bags. She denies any chest pain or SOB. - Objective Vital Signs & Weight: Vital Signs (12 hours) Temp Pulse Resp BP BP Pulse Ox 05/29/19 05:07 97.7 F 64 17 137/75 94 L 05/28/19 23:05 98.1 F 73 16 119/65 96 05/28/19 20:33 73 05/28/19 20:27 99.1 F 73 17 169/81 H 98 Weight Admit Weight 69.717 kg Weight 66.361 kg I&O: 05/27/19 05/28/19 05/29/19 06:59 06:59 06:59 Intake Total 460 4220 3277 Output Total 1655 Balance 460 4220 1622 Result Diagrams: 05/27/19 04:53 05/29/19 05:41 Phys Exam - Physical Examination Constitutional: NAD HEENT: moist MMs, sclera anicteric Neck: supple, full ROM Respiratory: no wheezing, no rhonchi, clear to auscultation bilateral Cardiovascular: RRR, no significant murmur Gastrointestinal: soft, non-tender, positive bowel sounds Musculoskeletal: no edema, pulses present Neurological: normal sensation, moves all 4 limbs Psychiatric: normal affect, A&O x 3 Skin: no rash, normal turgor Dx/Plan (1) Lymphadenopathy Code(s): R59.1 - GENERALIZED ENLARGED LYMPH NODES Status: Acute (2) Abdominal pain Code(s): R10.9 - UNSPECIFIED ABDOMINAL PAIN Status: Acute Qualifiers: Abdominal location: generalized Qualified Code(s): R10.84 - Generalized abdominal pain (3) Anxiety Code(s): F41.9 - ANXIETY DISORDER, UNSPECIFIED Status: Acute (4) Hyperkalemia Code(s): E87.5 - HYPERKALEMIA Status: Acute (5) Splenomegaly Code(s): R16.1 - SPLENOMEGALY, NOT ELSEWHERE CLASSIFIED Status: Acute (6) CLL (chronic lymphocytic leukemia) Code(s): C91.10 - CHRONIC LYMPHOCYTIC LEUK OF B-CELL TYPE NOT ACHIEVE REMIS Status: Chronic (7) HTN (hypertension) Code(s): I10 - ESSENTIAL (PRIMARY) HYPERTENSION Status: Chronic Qualifiers: Hypertension type: secondary to other renal disorders Qualified Code(s): I15.1 - Hypertension secondary to other renal disorders; N28.89 - Other specified disorders of kidney and ureter - Plan Plan: Patient is a 53F with PMHX of CLL (untreated), HTN, migraines, admitted for: #Intractable Abdominal pain likely 2/2 hepatosplenomegaly, lymphadenopathy, and hydronephrosis 2/2 ureter compression -CT scan demonstrated diffuse bulky lymphadenopathy throughout, with hepatosplenomegaly noted, compression of ureters, IVC, and renal arteries -Urology consulted--Dr. Nascimento & Dr. Briggs-nephrostomy tubes placed bilaterally on 05/27, will check BMP today. Will need f/u upon d/c as outpatient. -IV morphine prn for abdominal pain #CLL with resultant diffuse lymphadenopathy -Dr. Olivares, oncology, consulted from ED; did not recommend changes in plans of management for CLL at this time and patient to keep current 05/31 appointment #TARI -Likely from mass effect on ureters as above -check BMP today, s/p nephrostomy tube placement #Hyperkalemia -improved 5.9->5. possibly due to ureteral obstruction and TARI. calcium wnl, phosphorus and uric acid obtained and WNL to r/o tumor lysis syndrome -continue to monitor #HTN -continue home meds #Migraines -continue home meds Diet: Regular Dvt ppx: Lovenox to be restarted today Code: Full Dispo: Stable, admitted to inpatient on telemetry unit. Urology consulted, appreciate recs. Continue to monitor clinical improvement of abd pain. Anticipate discharge in next 24-48 hours. Addendum - Attending - Attending Attestation Date/Time: 05/29/19 3023 I personally evaluated the patient and discussed the management with [Quentin ] I agree with the History, Examination, Assessment and Plan documented above with any addition or exceptions noted below. Anticipate DC when cleared by urology s/p utostomy tube placement.
[2019-05-29 06:24] LABS: Anion Gap 13 mmol/L (10-20); BUN (Urea Nitrogen) 15 mg/dL (9.8-20.1); Calc. Creatinine Clearance 70 mL/min (70-130); Calcium 8.8 mg/dL (7.8-10.44); Carbon Dioxide 26 mmol/L (22-29); Chloride 106 mmol/L (98-107); Estimated GFR-MDRD 61; Glucose 78 mg/dL (70-105); Potassium 4.9 mmol/L (3.5-5.1); Sodium 140 mmol/L (136-145)
[2019-05-29] MEDS: Sodium Chloride 0.9% 1,000 ML IV SCH (06:40)
[2019-05-29] MEDS: Allopurinol 100 MG TAB PO SCH (09:11)
[2019-05-29] MEDS: FLUoxetine HCl 20 MG CAP PO SCH (09:11)
--- NOTE | 2019-05-29 10:26 | PRG ---
DATE OF SERVICE: 05/28/2019 PROGRESS NOTE OR TRANSITION OF CARE NOTE RESIDENT: Casey Finnegan MD I took care of this patient for a total of 3 days. HISTORY OF PRESENT ILLNESS/HOSPITAL COURSE: This is a 53-year-old female, who presented to the hospital on the 25 of May with intractable abdominal pain. The patient has history of CLL and had CT scan done of her abdomen, which showed multiple areas of lymphadenopathy, which had mass effect on multiple structures including compression of the IVC and bilateral ureters as well as renal arteries. Urology was consulted from admission and recommended admission into the hospital for pain control as well as for their evaluation for possible stent placement versus nephrostomy tube and so, the patient was admitted into the hospital, had pain controlled with morphine and was eventually seen by Urology, who planned for nephrostomy tubes to be placed. The patient responded well to pain management and had an unremarkable hospital stay during my time with her. As of this date, Urology has planned for nephrostomy tube placement today on 05/28/2019. Regarding the patient's CLL, she has plans for outpatient establishment of care with oncologist, Dr. Severo Olivares, on the of this month and plans to initiate treatment for her CLL in the near future. She has not received treatment yet secondary to financial issues. If you have any questions regarding this patient's care, please do not hesitate to call. Job ID: [id number]
[2019-05-29 11:46] VITALS: BP 141/67; TEMP 97.9
--- NOTE | 2019-05-29 14:40 | PRG ---
DATE OF SERVICE: SUBJECTIVE: The patient without complaints, tolerated nephrostomy tube uneventfully. Denies fever, chills. She states that she feels comfortable going home. OBJECTIVE: VITAL SIGNS: Stable. She is afebrile 97.9, 71, 18, 97, 141/67. I's and O's 1900 out. GENERAL: The patient is in no acute distress. HEART: Regular rate. LUNGS: Clear. ABDOMEN: Soft. Nephrostomy tube dressing is appropriately secured demonstrating ruthann pink tinged urine. EXTREMITIES: No cyanosis, clubbing, or edema. LABORATORY DATA: Her creatinine today 0.95, improved from yesterday 1.34. IMPRESSION AND PLAN: Ms. Maldonado is a pleasant 53-year-old female with history of hydronephrosis, due to lymphadenopathy secondary to lymphocytic leukemia, postop day #1, status post bilateral nephrostomy tube. The patient tolerated the procedure uneventfully. Feels comfortable going home. Nephrostomy tube care instructions provided. The patient to call our office Friday to schedule followup appointment with Dr. Nascimento. Job ID: [id number]
--- NOTE | 2019-05-31 11:13 | DIS ---
DATE OF ADMISSION: 05/26/2019 DATE OF DISCHARGE: 05/29/2019 RESIDENT: Noami Saavedra DO ADMITTING ATTENDING: Severo Velasco MD DISCHARGE ATTENDING: Aung Kat DO CONSULT: Urology, Dr. Bucky Nascimento. PROCEDURES: 1. CT abdomen and pelvis on May 26, 2019: Moderate bilateral hydronephrosis, predominantly due to bulky lymphadenopathy causing mass effect upon both distal ureters. Previously suggested obstructing calculus along the course of right ureter appears to be extra-ureteral in location. Enhancement of both ureters is likely due to an ascending urinary tract infection. Extensive bulky lymphadenopathy involving the gastrohepatic ligament, periportal region, retroperitoneum, and the left/ right hemipelvis including the presacral space. Lymphadenopathy causing mass effect upon the inferior vena cava and renal artery. Hepatosplenomegaly. 2. Placement of bilateral percutaneous nephrostomy tubes by Dr. Nascimento on May 28, 2019. PRIMARY DIAGNOSES: 1. Chronic lymphocytic leukemia with resultant diffuse lymphadenopathy. 2. Abdominal pain, likely secondary to hepatosplenomegaly. 3. Acute kidney injury. 4. Hyperkalemia. 5. Hypertension. 6. Migraines. 7. Hydronephrosis secondary to ureter compression. DISCHARGE MEDICATIONS: 1. Fluoxetine HCL 20 mg p.o. daily. 2. Celecoxib 200 mg p.o. at bedtime. 3. Atorvastatin 20 mg p.o. at bedtime. 4. Amlodipine 5 mg p.o. at bedtime. 5. Allopurinol 200 mg p.o. b.i.d. 6. Tylenol No. 3 one tab p.o. q.6 hour p.r.n. DISCONTINUED MEDICATIONS: 1. [place] 5/325 one tab p.o. q.6 hours p.r.n. 2. Morphine 4 mg slow IVP q.4 hours p.r.n. 3. Nicotine 14 mg TD q.24 hour. 4. Ondansetron 4 mg p.o. q.6 hours p.r.n. 5. Lovenox 40 mg subcu daily. HISTORY OF PRESENT ILLNESS/HOSPITAL COURSE: The patient is a 53-year-old female with past medical history of CLL, hypertension, and migraines, who presented to the [facility] Emergency Department on May 26, 2019, for abdominal pain. The patient had a recent admission for similar pain. It was deduced that her pain was likely due to splenomegaly and abdominal distention from her lymphadenopathy from the CLL. The patient has not yet started her chemotherapy due to financial issues, though she has an appointment to start on June 01, 2019. The patient reports that for the last several days she has had persistent dull sharp abdominal pain, largely in the left upper quadrant and throughout the right side of her abdomen. She reports that it worsens with acute movement or bending over. She denies any nausea, vomiting, diarrhea, hematochezia, melena, hematemesis, dysuria, increased or decreased urinary frequency, or hematuria. Per the emergency department physician, Urology was called and due to the mass effect on both distal ureters, it was recommended that stents be placed. Oncology, Dr. Olivares, was called and he did not endorse any changes to the plan of care from her upcoming appointment on May 31. In the emergency department, she was given 4 mg of morphine and 4 mg of Zofran. She was subsequently admitted to observation on the telemetry unit for management of intractable abdominal pain, management of and monitoring of hyperkalemia, and management of bilateral distal ureter compression by Urology. Upon arrival to the floor, the patient was stable and doing okay. Her potassium was found to be 5.9, creatinine 1.19 with a GFR of 47. A CT scan demonstrated diffuse bulky lymphadenopathy throughout with hepatosplenomegaly noted. The patient's TARI was thought to be due to be likely postrenal from ureteral compression. The patient was given some fluids and made n.p.o. for planned ureteral stent placement. On May 28, 2019, the patient had nephrostomy tubes placed bilaterally, she tolerated the procedure well. On the morning of May 29, 2019, the patient was doing well. She did have some mild back pain near her surgical sites as expected. She denied any other complaints at this time and overall is clinically improved. Her potassium had trended back down to a normal level of 5. Her calcium, phosphorus, and uric acid were all within normal limits, ruling out tumor lysis syndrome at this time. Urology evaluated the patient and deemed she was stable for discharge back home with close followup as an outpatient with Dr. Nascimento. She was given nephrostomy tube care instructions and discharged to home in stable condition. PERTINENT LABORATORY DATA: 1. CBC on May 26, 2019: WBC 243, hemoglobin 11.7, hematocrit 38.4, and platelets 136. 2. CMP on May 26, 2019: Sodium 139, potassium 5.9, chloride 105, carbon dioxide 28, BUN 16, creatinine 1.19, GFR 47, and glucose 103. Lactic acid 1.2, calcium 9.5, total bilirubin 0.5, AST 25, ALT 7, alkaline phosphatase 189, and lipase 46. DISPOSITION: Stable. DISCHARGE INSTRUCTIONS: 1. Location: Home. 2. Diet: Regular. 3. Activity: As tolerated. 4. Followup: a. Follow up with PCP in 3 to 5 days for hospital followup. b. Follow up with Dr. Severo Olivares, Oncology on June 01, 2019. c. Follow up with Dr. Bucky Nascimento, Urology in 4 to 6 weeks. Job ID: [id number] MTDD
== END 2019-05-29 16:01 | disposition home or self-care (01) | DRG 694 ==
LOC: ERS 13:29 → OBSVTOIN 17:50 → 2SW 17:50
PROVIDERS: ADMIT Family Medicine; ATTEND Family Medicine
PROC: 0T9430Z Drainage of Left Kidney Pelvis with Drainage Device, Percutaneous Approach (ICD-10-PCS; principal; 2019-05-28)
PROC: 0T9330Z Drainage of Right Kidney Pelvis with Drainage Device, Percutaneous Approach (ICD-10-PCS; 2019-05-28)
PROC: BT141ZZ Fluoroscopy of Kidneys, Ureters and Bladder using Low Osmolar Contrast (ICD-10-PCS; 2019-05-28)
DX: N13.1 Hydronephrosis with ureteral stricture, not elsewhere classified (principal); C91.10 Chronic lymphocytic leukemia of B-cell type not having achieved remission; N17.9 Acute kidney failure, unspecified; R16.2 Hepatomegaly with splenomegaly, not elsewhere classified; E78.5 Hyperlipidemia, unspecified; E87.5 Hyperkalemia; D64.9 Anemia, unspecified; G43.909 Migraine, unspecified, not intractable, without status migrainosus; I15.1 Hypertension secondary to other renal disorders; F17.210 Nicotine dependence, cigarettes, uncomplicated; Z90.710 Acquired absence of both cervix and uterus; Z79.899 Other long term (current) drug therapy
CPT/HCPCS: 36415; 50430; 50432; 74177; 80048; 80053; 81003; 83605; 83615; 83690; 84100; 84550; 85025; 85610; 85730; 93005; 96374; 96375; C1729; J1650; J2250; J2270; J2405; J3010; Q9967

== ENCOUNTER 2019-06-01 08:24 | Day surgery (SDC) | payer OTHER ==
[~2019-06-01 08:24] MED LIST: Dexamethasone Sod Phosphate 20 MG in Sodium Chloride 0.9% 50 ML IVPB SCH; OBINUTUZUMAB IV SCH; SODIUM CHLORIDE 0.9% IV SCH; diphenhydrAMINE 50 MG in Sodium Chloride 0.9% 50 ML IVPB SCH
[2019-06-01] MEDS ORDERED: Sodium Chloride 0.9% 20 ML ONE (08:41)
[2019-06-01] MEDS: Acetaminophen 500 MG TAB PO SCH ×2 (08:58→12:37)
[2019-06-01] MEDS ORDERED: Dexamethasone 10 MG/ML VIAL ONE (13:42)
[2019-06-01] MEDS ORDERED: Famotidine/PF 20 mg/2ml Vial ONE (13:42)
[2019-06-01] MEDS ORDERED: Dexamethasone 10 MG/ML VIAL SLOW IVP SCH (14:00)
[2019-06-01] MEDS ORDERED: Famotidine/PF 20 mg/2ml Vial SLOW IVP SCH (14:00)
[2019-06-01 17:52] VITALS: BP 125/61; TEMP 97.8
== END 2019-06-01 17:56 | disposition home or self-care (01) ==
LOC: ONC/OP 08:24
PROVIDERS: ATTEND Internal Medicine Hematology & Oncology
DX: Z51.11 Encounter for antineoplastic chemotherapy (principal); C91.10 Chronic lymphocytic leukemia of B-cell type not having achieved remission; F11.11 Opioid abuse, in remission
CPT/HCPCS: 96375; 96413; 96415; 99211; G0463; J1100; J1200; J3490; J9301; S0028

== ENCOUNTER 2019-06-02 08:04 | Day surgery (SDC) | payer OTHER ==
[~2019-06-02 08:04] MED LIST changes: +Acetaminophen 500 MG TAB PO SCH
[2019-06-02 10:10] VITALS: BP 135/70; TEMP 98
== END 2019-06-02 14:07 | disposition home or self-care (01) ==
LOC: ONC/OP 08:04
PROVIDERS: ATTEND Internal Medicine Hematology & Oncology
DX: C91.10 Chronic lymphocytic leukemia of B-cell type not having achieved remission (principal); F11.11 Opioid abuse, in remission; F17.290 Nicotine dependence, other tobacco product, uncomplicated
CPT/HCPCS: 96375; 96413; 96415; J1200

== ENCOUNTER 2019-06-08 08:12 | Day surgery (SDC) | payer OTHER ==
[~2019-06-08 08:12] MED LIST changes: -Dexamethasone Sod Phosphate 20 MG in Sodium Chloride 0.9% 50 ML IVPB SCH
[2019-06-08 08:34] VITALS: BP 115/61; TEMP 97.9
[2019-06-08] MEDS ORDERED: Sodium Chloride 0.9% 20 ML ONE ×2 (08:57→09:03)
[2019-06-08] MEDS ORDERED: Dexamethasone 10 MG/ML VIAL SLOW IVP SCH (09:00)
== END 2019-06-08 15:07 | disposition home or self-care (01) ==
LOC: ONC/OP 08:12
PROVIDERS: ATTEND Internal Medicine Hematology & Oncology
DX: Z51.12 Encounter for antineoplastic immunotherapy (principal); C91.10 Chronic lymphocytic leukemia of B-cell type not having achieved remission; F11.11 Opioid abuse, in remission
CPT/HCPCS: 96375; 96413; 96415; J1100; J1200; J7050; J9301

== ENCOUNTER 2019-06-15 09:57 | Day surgery (SDC) | payer OTHER ==
[~2019-06-15 09:57] MED LIST changes: +Dexamethasone Sod Phosphate 20 MG in Sodium Chloride 0.9% 50 ML IVPB SCH
[2019-06-15] MEDS ORDERED: Sodium Chloride 0.9% 20 ML ONE (09:58)
[2019-06-15 10:21] VITALS: BP 112/61; TEMP 97.9
== END 2019-06-15 15:56 | disposition home or self-care (01) ==
LOC: ONC/OP 09:57
PROVIDERS: ATTEND Internal Medicine Hematology & Oncology
DX: Z51.11 Encounter for antineoplastic chemotherapy (principal); C91.10 Chronic lymphocytic leukemia of B-cell type not having achieved remission; F11.11 Opioid abuse, in remission
CPT/HCPCS: 96375; 96413; 96415; J1100; J1200; J7050; J9301

== ENCOUNTER 2019-06-29 09:04 | Day surgery (SDC) | payer OTHER ==
[~2019-06-29 09:04] MED LIST changes: -Dexamethasone Sod Phosphate 20 MG in Sodium Chloride 0.9% 50 ML IVPB SCH
[2019-06-29] MEDS ORDERED: Sodium Chloride 0.9% 20 ML ONE (09:08)
[2019-06-29] MEDS ORDERED: Dexamethasone Sod Phosphate 20 MG in Sodium Chloride 0.9% 50 ML IVPB SCH (09:30)
[2019-06-29 10:01] VITALS: TEMP 98.6
[2019-06-29 15:39] VITALS: BP 108/55
== END 2019-06-29 15:39 | disposition home or self-care (01) ==
LOC: ONC/OP 09:04
PROVIDERS: ATTEND Internal Medicine Hematology & Oncology
DX: Z51.12 Encounter for antineoplastic immunotherapy (principal); C91.10 Chronic lymphocytic leukemia of B-cell type not having achieved remission; F11.11 Opioid abuse, in remission; F17.290 Nicotine dependence, other tobacco product, uncomplicated
CPT/HCPCS: 96375; 96413; 96415; J1100; J1200; J7050; J9301

== ENCOUNTER 2019-07-14 07:10 | Day surgery (SDC) | payer OTHER ==
[2019-07-13 16:05] VITALS: BMI 22.6
[2019-07-14 08:54] VITALS: BP 120/66; TEMP 96.4
[2019-07-14] MEDS ORDERED: Iopamidol 300 61% 50 ML VIAL FS ONE (09:15)
--- NOTE | 2019-07-26 14:59 | SPC ---
EXAM: SPC EXCHANGE NEPHROSTOMY CATH PROVIDED CLINICAL HISTORY: Patient with bilateral hydronephrosis secondary to bulky lymphadenopathy resulting in mass effect on each ureter. Patient has indwelling bilateral nephrostomy tubes, and replacement was requested. COMPARISON: 05/28/2019 TECHNIQUE: The procedure including the risks and complications were explained to the patient, and informed conse nt was obtained. The patient's bilateral nephrostomy tubes as well as surrounding area were meticulously prepped and draped in the usual sterile fashion. Skin and subcutaneous soft tissues at s ite of nephrostomy tubes were infiltrated with buffered 1% lidocaine for local anesthesia. A right nephrostogram was performed after puncture of the nephrostomy catheter with an 18-gauge needl e and injection of contrast. The catheter was then cut and exchanged over a 0.035 inch Bentson guidewire for a new 8 Bulgarian nephrostomy tube. Nephrostogram was performed demonstrating the distal p ortion of the catheter within the renal pelvis. The catheter was sutured in place utilizing 2-0 Ethilon suture material and placed to gravity drainage. A left nephrostogram was then performed after puncture of the nephrostomy catheter within an 18-gauge needle and injection of contrast. The catheter was cut and exchanged over a 0.035 inch Bentson guidewire for a new 8 Bulgarian nephrostomy tube. Contrast injection was performed demonstrating the dis joel portion of the catheter within the left renal pelvis. Catheter was placed to gravity drainage and sutured in place utilizing 2-0 Ethilon suture material. Dry sterile dressings were placed at site of nephrostomy tubes. The patient tolerated the procedure w ell and without immediate complication. IMPRESSION: Technically successful bilateral nephrostomy tube replacements. Transcribed Date/Time: 07/26/2019 2:59 PM
--- NOTE | 2019-07-26 14:59 | SPC ---
EXAM: SPC EXCHANGE NEPHROSTOMY CATH PROVIDED CLINICAL HISTORY: Patient with bilateral hydronephrosis secondary to bulky lymphadenopathy resulting in mass effect on each ureter. Patient has indwelling bilateral nephrostomy tubes, and replacement was requested. COMPARISON: 05/28/2019 TECHNIQUE: The procedure including the risks and complications were explained to the patient, and informed conse nt was obtained. The patient's bilateral nephrostomy tubes as well as surrounding area were meticulously prepped and draped in the usual sterile fashion. Skin and subcutaneous soft tissues at s ite of nephrostomy tubes were infiltrated with buffered 1% lidocaine for local anesthesia. A right nephrostogram was performed after puncture of the nephrostomy catheter with an 18-gauge needl e and injection of contrast. The catheter was then cut and exchanged over a 0.035 inch Bentson guidewire for a new 8 [place] nephrostomy tube. Nephrostogram was performed demonstrating the distal p ortion of the catheter within the renal pelvis. The catheter was sutured in place utilizing 2-0 Ethilon suture material and placed to gravity drainage. A left nephrostogram was then performed after puncture of the nephrostomy catheter within an 18-gauge needle and injection of contrast. The catheter was cut and exchanged over a 0.035 inch Bentson guidewire for a new 8 [place] nephrostomy tube. Contrast injection was performed demonstrating the dis joel portion of the catheter within the left renal pelvis. Catheter was placed to gravity drainage and sutured in place utilizing 2-0 Ethilon suture material. Dry sterile dressings were placed at site of nephrostomy tubes. The patient tolerated the procedure w ell and without immediate complication. IMPRESSION: Technically successful bilateral nephrostomy tube replacements. Transcribed Date/Time: 07/26/2019 2:58 PM
== END 2019-07-14 09:15 | disposition home or self-care (01) ==
LOC: SPEC 07:10
PROVIDERS: ATTEND Urology
PROC: 0T25X0Z Change Drainage Device in Kidney, External Approach (ICD-10-PCS; principal; 2019-07-14)
DX: N13.30 Unspecified hydronephrosis (principal); C95.90 Leukemia, unspecified not having achieved remission; I10 Essential (primary) hypertension; F17.210 Nicotine dependence, cigarettes, uncomplicated; E78.00 Pure hypercholesterolemia, unspecified; F41.9 Anxiety disorder, unspecified; F32.9 Major depressive disorder, single episode, unspecified; R16.2 Hepatomegaly with splenomegaly, not elsewhere classified; Z79.899 Other long term (current) drug therapy
CPT/HCPCS: 50431; 50436; 75984; Q9967

== ENCOUNTER 2019-07-18 21:02 | Emergency (ER) | payer OTHER, SELFPAY ==
[2019-07-18 21:45] LABS: Bacteria/HPF None Seen HPF (None Seen); Bilirubin Negative (Negative); Blood, Urine Negative (Negative); Clarity Clear (Clear); Glucose, Urine (Dipstick) Normal (Negative); Leukocyte 25 Leu/uL (Negative); Nitrite Negative (Negative); Protein, Urine (Dipstick) Negative (Neg-Trace); RBC/HPF 0-3 HPF (0-3); Squamous Epithelial 0-3 HPF (0-3); Urobilinogen Normal mg/dL (Less than 2)
--- NOTE | 2019-07-18 22:08 | CT ---
CT abdomen and pelvis noncontrast HISTORY: Right flank pain. Recent exchange of nephrostomy catheters. COMPARISON: 05/26/2019. FINDINGS: Each renal collecting system, ureter, and urinary bladder are now decompressed. Bilateral p ercutaneous nephrostomy catheters are in place, decompressing the renal collecting systems. The right nephrostomy catheter is somewhat redundant, gently buckled posterior to the right renal cor catalino, anterior to the posterolateral abdominal wall. This extends over a length of approximately 2.6 cm. No fluid collections are apparent. Lack of contrast limits evaluation for the soft tissues. There is mild atelectasis at the right later al lung base. Adenopathy throughout the retroperitoneum is less pronounced than on the prior CT exam. Spleen measur es up to 17.5 cm. Dilated vascular structures at the splenic hilum have the appearance of varices. IMPRESSION : Bilateral percutaneous nephrostomy catheters are in place with decompression of the renal collecting systems. No evidence of complication. The right catheter is somewhat redundant and curved between the kidney and posterior abdominal wall. It is conceivable that this could result in discomfort, marlin cially during respiration. No adjacent fluid is evident. It is unlikely that a simple exchange of the catheter would resolve the redundancy. If symptoms are severe, the patient could be scheduled to evaluate this redundancy under fluoroscopic evaluation and attempt to reduce it. Splenomegaly. Retroperitoneal adenopathy has improved since the most recent CT exam.
[2019-07-18 22:16] LABS: Hemoglobin 12.1 g/dL (12.0-16.0); Mean Corpuscular Hemoglobin 31.8 pg (27.0-31.0); Mean Corpuscular Volume 93.6 fL (78.0-98.0); RBC Distribution Width 12.9 % (11.5-14.5); Red Blood Cell (RBC) Count 3.79 mill/uL (4.20-5.40); White Blood Cell (WBC) Count 3.8 thou/uL (4.8-10.8)
[2019-07-18 22:28] LABS: #Lymphocytes 1.5 thou/uL (1.20-3.40); #Monocytes 0.4 thou/uL (0.11-0.59); %Basophils 0.5 % (0.0-1.0); %Eosinophils 0.9 % (0.0-10.0); %Lymphocytes 38.8 % (21.0-51.0); %Monocytes 9.1 % (0.0-10.0); %Neutrophils 50.7 % (42.0-75.0); ALT (SGPT) Less than 7 U/L (8-55); AST (SGOT) 14 U/L (5-34); Albumin 4.1 g/dL (3.5-5.0); Alkaline Phosphatase 95 U/L (40-110); Anion Gap 14 mmol/L (10-20); BUN (Urea Nitrogen) 17 mg/dL (9.8-20.1); Bilirubin, Total 0.3 mg/dL (0.2-1.2); Calc. Creatinine Clearance 0 mL/min (70-130); Calcium 9.2 mg/dL (7.8-10.44); Carbon Dioxide 23 mmol/L (22-29); Chloride 107 mmol/L (98-107); Estimated GFR-MDRD 69; Globulin 2.7 g/dL (2.4-3.5); Glucose 105 mg/dL (70-105); Mean Platelet Volume 9.1 fL (7.4-10.4); Platelet Count 77 thou/uL (130-400); Platelet Morphology Comment Appears Decreased; Potassium 4.2 mmol/L (3.5-5.1); Protein, Total 6.8 g/dL (6.0-8.3); Sodium 140 mmol/L (136-145)
[2019-07-18] MEDS ORDERED: Ketorolac Tromethamine 30 MG/ML VIAL ONE (22:53)
== END 2019-07-18 23:12 | disposition home or self-care (01) ==
LOC: ERS 21:02
DX: R10.11 Right upper quadrant pain (principal); Z43.6 Encounter for attention to other artificial openings of urinary tract; I10 Essential (primary) hypertension; G43.909 Migraine, unspecified, not intractable, without status migrainosus; F17.210 Nicotine dependence, cigarettes, uncomplicated; Z79.899 Other long term (current) drug therapy
CPT/HCPCS: 36415; 74176; 80053; 81003; 81015; 85025; 87086; 96372; J1885

== ENCOUNTER 2019-07-27 09:16 | Day surgery (SDC) | payer OTHER ==
[2019-07-27] MEDS ORDERED: Sodium Chloride 0.9% 20 ML ONE ×2 (09:19→09:25)
[2019-07-27] MEDS ORDERED: diphenhydrAMINE 50 MG in Sodium Chloride 0.9% 50 ML IVPB PRN (09:27)
[2019-07-27] MEDS ORDERED: Acetaminophen 500 MG TAB PO PRN (09:28)
[2019-07-27] MEDS ORDERED: OBINUTUZUMAB IV SCH (09:30)
[2019-07-27] MEDS ORDERED: Dexamethasone Sod Phosphate 20 MG in Sodium Chloride 0.9% 50 ML IVPB SCH (09:30)
[2019-07-27] MEDS ORDERED: SODIUM CHLORIDE 0.9% IV SCH (09:30)
[2019-07-27 09:44] VITALS: TEMP 97.8
[2019-07-27] MEDS ORDERED: Sodium Chloride 0.9% 1,000 ML IV SCH (12:45)
[2019-07-27 15:56] VITALS: BP 113/58
== END 2019-07-27 15:58 | disposition home or self-care (01) ==
LOC: ONC/OP 09:16
PROVIDERS: ATTEND Internal Medicine Hematology & Oncology
DX: Z51.11 Encounter for antineoplastic chemotherapy (principal); C91.10 Chronic lymphocytic leukemia of B-cell type not having achieved remission; F11.11 Opioid abuse, in remission
CPT/HCPCS: 96375; 96413; 96415; J1100; J1200; J1642; J7050; J9301

== ENCOUNTER 2019-08-10 08:13 | Outpatient (CLI) | payer OTHER ==
[2019-08-10] MEDS ORDERED: Iopamidol-370 76% 500 ML 1 ML ONE (08:49)
--- NOTE | 2019-08-10 11:02 | CT ---
CT CHEST WITH IV CONTRAST CT ABDOMEN WITH IV CONTRAST CT PELVIS WITH IV CONTRAST: Date: 08/10/2019 HISTORY: Lymphoma. Chronic lymphocytic leukemia, B-cell type, not having achieved remission. Other elevated ite blood cell count. Tobacco use. Opioid abuse, in remission. COMPARISON: 05/26/2019. FINDINGS: No mediastinal, hilar, or axillary mass or lymphadenopathy is seen. No pleural or pericardial effusio ns are identified. No focal areas of consolidation or lung masses are identified. There is a 3.0 mm p eripheral nodule in the right upper lobe. The spleen is enlarged, measuring 17.0 cm in length, compared to 24 cm on the previous study. The rig ht lobe of the liver currently measures 19.0 cm (previously 21.6 cm). The pancreas and adrenal glands are normal. There has been interval placement of bilateral nephrostom y tubes. A 17.0 mm low density lesion in the left adrenal cortex, likely cyst, is again seen. There m ay be a tiny gallstone. No free air or free fluid is seen in the abdomen or pelvis. The small bowel l oops are not abnormally dilated. Interval improvement is seen in the abdominopelvic lymphadenopathy since the comparison exam with the retroperitoneal lymphadenopathy measuring 3.3 cm in largest AP dimension in the left paraaortic nuvia on (5.5 cm on the previous study). No osteolytic or osteoblastic lesions are seen. No suspicious osse ous abnormalities are seen. Patient is post hysterectomy. IMPRESSION: 1. 3.0 mm right upper lobe lung nodule. 2. Interval improvement in the abdominopelvic findings since 05/26/2019. POS: [facility]
== END 2019-08-10 08:14 | disposition home or self-care (01) ==
LOC: BICCT 08:13
PROVIDERS: ATTEND Internal Medicine Hematology & Oncology
DX: C91.10 Chronic lymphocytic leukemia of B-cell type not having achieved remission (principal); R91.1 Solitary pulmonary nodule
CPT/HCPCS: 71260; 74177; Q9967

== ENCOUNTER 2019-08-17 09:12 | Outpatient (CLI) | payer OTHER ==
[2019-08-17] MEDS ORDERED: Iopamidol 300 61% 50 ML VIAL FS ONE (09:33)
--- NOTE | 2019-08-17 12:05 | SPC ---
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 Interval significant improvement in the ridge peritoneal lymphadenopathy. TECHNIQUE: Signed informed consent obtained. Patient placed prone on the special procedures table. Existing righ t percutaneous nephrostomy tube was injected with Isovue under intermittent fluoroscopy. A total of 12 mL was injected. The same was performed for the contralateral left existing percutaneous nephrosto my tube, 12 mL. Both nephrostomy tubes were capped. Patient was instructed to walk for 5 minutes. She was placed back on the fluoroscopy table in prone position. Right percutaneous nephrostomy tube w as cut with scissors, and the tube was removed. The same was performed for the left nephrostomy tube. Patient tolerated procedure well. No complications. FINDINGS: Injection into the bilateral renal collecting systems demonstrate no hydronephrosis, and adequate per istalsis and flow of contrast in normal caliber bilateral ureters, into the urinary bladder. Delayed images demonstrate satisfactory clearance of contrast material from the bilateral renal colle cting systems and ureters, into the bladder. Postremoval images demonstrate absence of the bilateral nephrostomy tubes. IMPRESSION: 1. Interval resolution of the bilateral obstructive uropathy. 2. Successful removal of the bilateral percutaneous nephrostomy tubes.
== END 2019-08-17 09:13 | disposition home or self-care (01) ==
LOC: RAD 09:12
PROVIDERS: ATTEND Urology
DX: N13.30 Unspecified hydronephrosis (principal)
CPT/HCPCS: 50431; Q9967

== ENCOUNTER 2019-08-24 09:05 | Day surgery (SDC) | payer OTHER ==
[~2019-08-24 09:05] MED LIST changes: +Dexamethasone Sod Phosphate 20 MG in Sodium Chloride 0.9% 50 ML IVPB SCH
[2019-08-24] MEDS ORDERED: Sodium Chloride 0.9% 20 ML ONE (09:18)
[2019-08-24 09:55] VITALS: TEMP 98.6
[2019-08-24 14:23] VITALS: BP 115/63
== END 2019-08-24 14:23 | disposition home or self-care (01) ==
LOC: ONC/OP 09:05
PROVIDERS: ATTEND Internal Medicine Hematology & Oncology
DX: Z51.11 Encounter for antineoplastic chemotherapy (principal); C91.10 Chronic lymphocytic leukemia of B-cell type not having achieved remission
CPT/HCPCS: 96367; 96413; J1100; J1200; J7050; J9301

== ENCOUNTER 2019-09-21 09:22 | Day surgery (SDC) | payer OTHER ==
[2019-09-21] MEDS ORDERED: Sodium Chloride 0.9% 20 ML ONE (09:31)
[2019-09-21 09:44] VITALS: BP 120/66; TEMP 97.9
== END 2019-09-21 15:13 | disposition home or self-care (01) ==
LOC: ONC/OP 09:22
PROVIDERS: ATTEND Internal Medicine Hematology & Oncology
DX: Z51.12 Encounter for antineoplastic immunotherapy (principal); C91.10 Chronic lymphocytic leukemia of B-cell type not having achieved remission; F11.11 Opioid abuse, in remission
CPT/HCPCS: 96375; 96413; J1100; J1200; J7050; J9301

== ENCOUNTER 2019-09-23 15:03 | Outpatient (CLI) | payer OTHER ==
--- NOTE | 2019-09-23 15:46 | ULT ---
US Renal Bilateral STANDARD History: Obstructive uropathy Comparison: CT examination August 10, 2019 Findings: Real-time grayscale and color evaluation of the kidneys and urinary bladder was performed. Both kidneys are without mass, hydronephrosis or abnormal calcifications. There is mild prominence of both renal pelvis by without overt dilatation. Right kidney measures 10.7 x 4.1 x 4.8 cm. Left kidney measures 11.5 x 4.2 x 4.9 cm with a 1.6 cm interpolar cyst. Prevoid urinary bladder volume is 244 mL and post void volume is 3 mL. Impression: Low-grade prominence of the renal pelvi without overt dilatation.
== END 2019-09-23 15:04 | disposition home or self-care (01) ==
LOC: SCSULT 15:03
PROVIDERS: ATTEND Urology
DX: N13.30 Unspecified hydronephrosis (principal)
CPT/HCPCS: 76770

== ENCOUNTER 2020-02-04 17:41 | Emergency (ER) | payer SELFPAY ==
[2020-02-04 18:38] LABS: #Monocytes 0.4 thou/uL (0.11-0.59); #Neutrophils 2.8 thou/uL (1.40-6.50); %Basophils 0.6 % (0.0-1.0); %Eosinophils 0.5 % (0.0-10.0); %Lymphocytes 38.4 % (21.0-51.0); %Monocytes 7.1 % (0.0-10.0); %Neutrophils 53.5 % (42.0-75.0); Mean Corpuscular HGB CONC 35.2 g/dL (32.0-36.0); Mean Corpuscular Hemoglobin 32.9 pg (27.0-31.0); Mean Corpuscular Volume 93.3 fL (78.0-98.0); Mean Platelet Volume 7.5 fL (7.4-10.4); Platelet Count 128 thou/uL (130-400); RBC Distribution Width 12.9 % (11.5-14.5); Red Blood Cell (RBC) Count 4.27 mill/uL (4.20-5.40); White Blood Cell (WBC) Count 5.1 thou/uL (4.8-10.8)
[2020-02-04 19:00] LABS: ALT (SGPT) 8 U/L (8-55); AST (SGOT) 14 U/L (5-34); Alkaline Phosphatase 91 U/L (40-110); Anion Gap 14 mmol/L (10-20); BUN (Urea Nitrogen) 11 mg/dL (9.8-20.1); Bilirubin, Total 0.2 mg/dL (0.2-1.2); Calc. Creatinine Clearance 0 mL/min (70-130); Carbon Dioxide 24 mmol/L (22-29); Chloride 109 mmol/L (98-107); Estimated GFR-MDRD 64; Globulin 2.6 g/dL (2.4-3.5); Glucose 146 mg/dL (70-105); Protein, Total 6.6 g/dL (6.0-8.3); Sodium 143 mmol/L (136-145)
[2020-02-04] MEDS ORDERED: Dexamethasone 4 MG TAB ONE (19:48)
--- NOTE | 2020-02-04 20:00 | RAD ---
PORTABLE CHEST: 02/04/20 PROVIDED CLINICAL HISTORY: Cough and congestion. FINDINGS: Comparison 01/26/20. Cardiac and mediastinal silhouette is within normal limits. No focal consolidation, pleural fluid or pneumothorax apparent. IMPRESSION: No evidence for an acute cardiopulmonary process. POS: [facility]
== END 2020-02-04 20:02 | disposition home or self-care (01) ==
LOC: ERS 17:41
DX: J18.9 Pneumonia, unspecified organism (principal); J44.1 Chronic obstructive pulmonary disease with (acute) exacerbation; I10 Essential (primary) hypertension; G43.909 Migraine, unspecified, not intractable, without status migrainosus; F17.210 Nicotine dependence, cigarettes, uncomplicated
CPT/HCPCS: 36415; 71045; 80053; 84484; 85025; 85379; 93005; J8540

== ENCOUNTER 2020-06-04 17:24 | Emergency (ER) | payer SELFPAY ==
[2020-06-04 18:26] LABS: Bacteria/HPF None Seen HPF (None Seen); Bilirubin Negative (Negative); Blood, Urine Trace (Negative); Clarity Clear (Clear); Glucose, Urine (Dipstick) Normal (Negative); Ketone, Urine Negative (Negative); Leukocyte Negative Leu/uL (Negative); Nitrite Negative (Negative); Protein, Urine (Dipstick) Negative (Neg-Trace); RBC/HPF 0-3 HPF (0-3); Specific Gravity, Urine 1.013 (1.002-1.036); Squamous Epithelial 0-3 HPF (0-3); Urobilinogen Normal mg/dL (Less than 2); WBC/HPF 0-3 HPF (0-3)
[2020-06-04 18:45] LABS: #Lymphocytes 1.5 thou/uL (1.20-3.40); #Monocytes 0.4 thou/uL (0.11-0.59); #Neutrophils 1.8 thou/uL (1.40-6.50); %Basophils 1.2 % (0.0-1.0); %Lymphocytes 39.6 % (21.0-51.0); %Monocytes 10.9 % (0.0-10.0); %Neutrophils 48.2 % (42.0-75.0); Hemoglobin 13.8 g/dL (12.0-16.0); Mean Corpuscular HGB CONC 35.8 g/dL (32.0-36.0); Mean Corpuscular Hemoglobin 34.9 pg (27.0-31.0); Mean Corpuscular Volume 97.4 fL (78.0-98.0); Mean Platelet Volume 7.1 fL (7.4-10.4); Platelet Count 108 thou/uL (130-400); RBC Distribution Width 12.8 % (11.5-14.5); Red Blood Cell (RBC) Count 3.94 mill/uL (4.20-5.40); White Blood Cell (WBC) Count 3.7 thou/uL (4.8-10.8)
[2020-06-04 19:09] LABS: ALT (SGPT) 10 U/L (8-55); AST (SGOT) 15 U/L (5-34); Albumin 4.2 g/dL (3.5-5.0); Alkaline Phosphatase 88 U/L (40-110); Anion Gap 13 mmol/L (10-20); BUN (Urea Nitrogen) 10 mg/dL (9.8-20.1); Bilirubin, Total 0.4 mg/dL (0.2-1.2); Calc. Creatinine Clearance 0 mL/min (70-130); Calcium 8.8 mg/dL (7.8-10.44); Carbon Dioxide 25 mmol/L (22-29); Chloride 106 mmol/L (98-107); Globulin 2.6 g/dL (2.4-3.5); Glucose 95 mg/dL (70-105); Lipase 46 U/L (8-78); Potassium 3.8 mmol/L (3.5-5.1); Protein, Total 6.8 g/dL (6.0-8.3); Sodium 140 mmol/L (136-145)
== END 2020-06-04 20:57 | disposition home or self-care (01) ==
LOC: ERS 17:24
DX: R10.84 Generalized abdominal pain (principal); R14.0 Abdominal distension (gaseous); I10 Essential (primary) hypertension; F17.210 Nicotine dependence, cigarettes, uncomplicated; Z79.899 Other long term (current) drug therapy
CPT/HCPCS: 36415; 74177; 80053; 81003; 81015; 83690; 85025; 87086

== ENCOUNTER 2020-08-14 09:08 | Outpatient (CLI) | payer SELFPAY ==
[~2020-08-14 09:08] MED LIST changes: -Acetaminophen 500 MG TAB PO SCH; -Dexamethasone Sod Phosphate 20 MG in Sodium Chloride 0.9% 50 ML IVPB SCH; +Iopamidol 370 76% 100 ML VIAL ONE; -OBINUTUZUMAB IV SCH; -SODIUM CHLORIDE 0.9% IV SCH; -diphenhydrAMINE 50 MG in Sodium Chloride 0.9% 50 ML IVPB SCH
== END 2020-08-14 09:09 | disposition home or self-care (01) ==
LOC: CT 09:08
PROVIDERS: ATTEND Internal Medicine Hematology & Oncology
DX: C91.10 Chronic lymphocytic leukemia of B-cell type not having achieved remission (principal); R91.1 Solitary pulmonary nodule; J98.4 Other disorders of lung
CPT/HCPCS: 71260; 74177

== ENCOUNTER 2021-12-15 20:29 | Emergency (ER) | payer SELFPAY ==
[2021-12-15] MEDS ORDERED: diphenhydrAMINE 50 MG/ML VIAL ONE (21:21)
[2021-12-15] MEDS ORDERED: Metoclopramide HCl 10 MG/2 ML VIAL ONE (21:21)
[2021-12-15] MEDS ORDERED: Acetaminophen 500 MG TAB ONE (21:21)
[2021-12-15] MEDS ORDERED: Ketorolac Tromethamine 30 MG/ML VIAL ONE (22:17)
== END 2021-12-15 23:19 | disposition home or self-care (01) ==
LOC: ERS 20:29
DX: G43.909 Migraine, unspecified, not intractable, without status migrainosus (principal); I10 Essential (primary) hypertension; F17.210 Nicotine dependence, cigarettes, uncomplicated; Z79.899 Other long term (current) drug therapy
CPT/HCPCS: 96374; 96375; J1200; J1885; J2765

== ENCOUNTER 2022-02-17 14:51 | Inpatient (IN) | payer BC, SELFPAY ==
[~2022-02-17 14:51] MED LIST changes: -Iopamidol 370 76% 100 ML VIAL ONE; +Iopamidol-370 76% 500 ML 1 ML ONE
[2022-02-17 15:39] LABS: #Lymphocytes 1.5 thou/uL (1.20-3.40); #Monocytes 0.4 thou/uL (0.11-0.59); #Neutrophils 4.8 thou/uL (1.40-6.50); %Basophils 0.1 % (0.0-1.0); %Eosinophils 0.5 % (0.0-10.0); %Lymphocytes 22.6 % (21.0-51.0); %Monocytes 5.9 % (0.0-10.0); %Neutrophils 70.9 % (42.0-75.0); Hemoglobin 13.6 g/dL (12.0-16.0); Mean Corpuscular HGB CONC 33.4 g/dL (32.0-36.0); Mean Corpuscular Hemoglobin 33.2 pg (27.0-31.0); Mean Corpuscular Volume 99.4 fl (78.0-98.0); Mean Platelet Volume 7.8 fL (7.4-10.4); Platelet Count 158 10x3/uL (130-400); RBC Distribution Width 11.7 % (11.5-14.5); White Blood Cell (WBC) Count 6.7 10x3/uL (4.8-10.8)
[2022-02-17 15:58] LABS: ALT (SGPT) 11 U/L (8-55); AST (SGOT) 20 U/L (5-34); Albumin 4.4 g/dL (3.5-5.0); Alkaline Phosphatase 123 U/L (40-110); Anion Gap 13 mmol/L (10-20); BUN (Urea Nitrogen) 8 mg/dL (9.8-20.1); Bilirubin, Total 0.8 mg/dL (0.2-1.2); Calc. Creatinine Clearance 0 mL/min (70-130); Calcium 9.2 mg/dL (7.8-10.44); Carbon Dioxide 26 mmol/L (22-29); Chloride 106 mmol/L (98-107); Estimated GFR 92; Globulin 2.6 g/dL (2.4-3.5); Glucose 107 mg/dL (70-105); Potassium 3.9 mmol/L (3.5-5.1); Sodium 141 mmol/L (136-145)
[2022-02-17 17:19] LABS: Bacteria/HPF None Seen HPF (None Seen); Bilirubin Negative (Negative); Blood, Urine 1+ (Negative); Clarity Clear (Clear); Glucose, Urine (Dipstick) Normal (Negative); Ketone, Urine Negative (Negative); Leukocyte Negative Leu/uL (Negative); Nitrite Negative (Negative); Protein, Urine (Dipstick) 20 mg/dL (Neg-Trace); Specific Gravity, Urine 1.018 (1.002-1.036); Squamous Epithelial 0-3 HPF (0-3); Urobilinogen 12 mg/dL (Less than 2); WBC/HPF 0-3 HPF (0-3)
[2022-02-17] MEDS ORDERED: Cefepime 2 GM VIAL ONE (19:20)
[2022-02-17] MEDS ORDERED: Dexamethasone 10 MG/ML VIAL ONE (19:20)
[2022-02-17] MEDS ORDERED: Vancomycin 1 GM/200 ML (FROZEN) BAG ONE (20:10)
[2022-02-17 20:16] LABS: SARS-CoV-2 NAA Rapid Test Not Detected (NotDetected)
[2022-02-17] MEDS ORDERED: Acetaminophen 325 MG TAB PO PRN (20:35)
[2022-02-17] MEDS ORDERED: Senokot S 8.6-50 MG TAB PO PRN (20:35)
[2022-02-17] MEDS ORDERED: Ondansetron ODT 4 MG TAB PO PRN (20:35)
[2022-02-17] MEDS: Famotidine 20 MG TAB PO SCH (22:37)
[2022-02-17] MEDS: Doxycycline 100 MG CAP PO SCH (22:37)
[2022-02-17] MEDS: Nicotine 14 MG PATCH TD SCH (22:39)
[2022-02-18 00:44] VITALS: BMI 23.8
[2022-02-18 05:59] LABS: #Lymphocytes 0.9 thou/uL (1.20-3.40); #Monocytes 0.3 thou/uL (0.11-0.59); %Basophils 0.1 % (0.0-1.0); %Eosinophils 0.4 % (0.0-10.0); %Lymphocytes 14.6 % (21.0-51.0); %Monocytes 4.9 % (0.0-10.0); Mean Corpuscular HGB CONC 32.8 g/dL (32.0-36.0); Mean Corpuscular Hemoglobin 33.1 pg (27.0-31.0); Platelet Count 158 10x3/uL (130-400); RBC Distribution Width 11.5 % (11.5-14.5); Red Blood Cell (RBC) Count 3.92 mill/uL (4.20-5.40); White Blood Cell (WBC) Count 6.3 10x3/uL (4.8-10.8)
[2022-02-18 06:30] LABS: Anion Gap 12 mmol/L (10-20); BUN (Urea Nitrogen) 10 mg/dL (9.8-20.1); Calc. Creatinine Clearance 96 mL/min (70-130); Calcium 9.4 mg/dL (7.8-10.44); Carbon Dioxide 24 mmol/L (22-29); Chloride 106 mmol/L (98-107); Estimated GFR 94; Glucose 162 mg/dL (70-105); Potassium 4.4 mmol/L (3.5-5.1); Sodium 138 mmol/L (136-145)
[2022-02-18] MEDS: cefTRIAXone\\ROCEPHIN 1 GM in Sodium Chloride 0.9% 100 ML IVPB SCH (08:20)
[2022-02-18] MEDS: Polyethylene Glycol 3350 17 GM Packet PO SCH (08:22)
[2022-02-18] MEDS: Enoxaparin Sodium 40 MG/0.4 ML SYRINGE SC SCH (08:22)
[2022-02-18] MEDS: methylPREDNISolone Sod Succ 40 MG VIAL IVP SCH ×2 (08:24→21:59)
[2022-02-18] MEDS: Famotidine 20 MG TAB PO SCH ×2 (08:24→21:59)
[2022-02-18] MEDS ORDERED: Senokot S 8.6-50 MG TAB PO PRN (08:45)
[2022-02-18] MEDS: Doxycycline 100 MG CAP PO SCH ×2 (09:09→21:58)
[2022-02-18] MEDS ORDERED: Fleet Enema 133 ML BOT PR SCH (13:15)
[2022-02-18] MEDS: Allopurinol 100 MG TAB PO SCH ×2 (14:02→21:59)
[2022-02-18] MEDS: Arformoterol 15 MCG/2 ML NEB NEB SCH (19:09)
[2022-02-18] MEDS ORDERED: Atorvastatin Calcium 20 MG TAB PO SCH (21:00)
[2022-02-18] MEDS: FLUoxetine HCl 20 MG CAP PO SCH (21:58)
[2022-02-18] MEDS: Gabapentin 400 MG CAP PO SCH (22:00)
[2022-02-18] MEDS: Nicotine 14 MG PATCH TD SCH (22:00)
[2022-02-19 06:14] LABS: Anion Gap 16 mmol/L (10-20); BUN (Urea Nitrogen) 15 mg/dL (9.8-20.1); Calc. Creatinine Clearance 91 mL/min (70-130); Calcium 9.2 mg/dL (7.8-10.44); Carbon Dioxide 22 mmol/L (22-29); Chloride 107 mmol/L (98-107); Estimated GFR 88; Glucose 180 mg/dL (70-105); Potassium 4.6 mmol/L (3.5-5.1)
[2022-02-19 06:23] LABS: Sodium 140 mmol/L (136-145)
[2022-02-19] MEDS ORDERED: Senokot S 8.6-50 MG TAB PO PRN (07:57)
[2022-02-19] MEDS: cefTRIAXone\\ROCEPHIN 1 GM in Sodium Chloride 0.9% 100 ML IVPB SCH (07:59)
[2022-02-19] MEDS: Famotidine 20 MG TAB PO SCH (08:00)
[2022-02-19] MEDS: Allopurinol 100 MG TAB PO SCH (08:00)
[2022-02-19] MEDS: Gabapentin 400 MG CAP PO SCH (08:00)
[2022-02-19] MEDS: FLUoxetine HCl 20 MG CAP PO SCH (08:00)
[2022-02-19] MEDS: Polyethylene Glycol 3350 17 GM Packet PO SCH (08:01)
[2022-02-19] MEDS: Enoxaparin Sodium 40 MG/0.4 ML SYRINGE SC SCH (08:02)
[2022-02-19] MEDS: methylPREDNISolone Sod Succ 40 MG VIAL IVP SCH (08:02)
[2022-02-19 08:12] VITALS: BP 143/82; TEMP 97.6
[2022-02-19] MEDS: Doxycycline 100 MG CAP PO SCH (08:15)
[2022-02-19] MEDS: Arformoterol 15 MCG/2 ML NEB NEB SCH (08:34)
[2022-02-19] MEDS ORDERED: Montelukast Sodium 10 mg Tablet PO SCH (09:00)
[2022-02-21] MEDS ORDERED: FLU VACC QS2022-23(6MOS UP)/PF 60 MCG/0.5 ML SYRINGE IM ONE (09:00)
[2022-02-21] MEDS ORDERED: Prevnar 13-Val Conj/PF 0.5 ML SYRINGE IM ONE (09:00)
== END 2022-02-19 15:11 | disposition home or self-care (01) | DRG 193 ==
LOC: ERS 14:51 → MSONC 19:26
PROVIDERS: ADMIT Student in an Organized Health Care Education/Training Program; ATTEND Family Medicine
DX: J18.9 Pneumonia, unspecified organism (principal); J96.01 Acute respiratory failure with hypoxia; C91.10 Chronic lymphocytic leukemia of B-cell type not having achieved remission; J44.1 Chronic obstructive pulmonary disease with (acute) exacerbation; J44.0 Chronic obstructive pulmonary disease with (acute) lower respiratory infection; E78.5 Hyperlipidemia, unspecified; K59.00 Constipation, unspecified; Z79.899 Other long term (current) drug therapy
CPT/HCPCS: 36415; 71045; 74177; 80048; 80053; 81003; 81015; 83605; 85025; 87040; 94640; J0692; J0696; J1100; J1650; J2920; J3370-JW; J3490; J7620; Q9967